=== PATIENT | female | born 1930 | race Caucasian/White ===

== ENCOUNTER 2018-11-06 20:22 | Inpatient (IN) ==
[2018-11-06] MEDS ORDERED: NS 1,000 ML IV ONE (21:12)
[2018-11-06 21:35] LABS: BASO# 0.04 X1000 (0.0-0.2); BASO% 0.7 % (0.0-0.8); EOS# 0.15 X1000 (0.0-0.7); EOS% 2.7 % (0.0-10.0); HEMATOCRIT 39.8 % (37.0-47.0); HEMOGLOBIN 13.3 g/dL (12.0-16.0); LYMPH# 1.78 X1000 (1.2-3.4); LYMPH% 32.1 % (20.5-51.1); MCH 32.5 PG (27-31); MCHC 33.4 g/dL (33-37); MCV 97.3 FL (81-99); MONO# 0.44 X1000 (0.11-0.59); MONO% 7.9 % (1.7-9.3); NEUT# 3.13 X1000 (1.4-6.5); NEUT% 56.6 % (42.2-75.2); PLT 218 X1000 (130-400); RBC 4.09 XMIL (4.2-5.4); RDW 12.4 % (11.5-14.5); WBC 5.54 X1000 (4.8-10.8)
[2018-11-06 21:48] LABS: AGAP 17; ALB/GLOB RATIO 1.3; ALKALINE PHOSPHATASE 59 U/L (32-104); BUN 17 mg/dL (8-22); CALCIUM 9.8 mg/dL (8.8-10.2); CHLORIDE 102 mmol/L (98-107); COSMO 290; CREATININE 0.8 mg/dL (0.5-0.9); ESTIMATED GFR > 60; GLUCOSE 103 mg/dL (70-104); GOT 21 U/L (10-30); GPT 12 U/L (10-36); POTASSIUM 3.3 mmol/L (3.5-5.1); SODIUM 145 mmol/L (136-145); TCO2 26 mmol/L (25-35); TOTAL BILIRUBIN 0.45 mg/dL (0.20-1.00); TOTAL PROTEIN 7.2 g/dL (6.3-8.3)
--- NOTE | 2018-11-06 22:01 | Diag Imaging Result Doc PS360 ---
CT HEAD W/O CONTRAST - 11/06/2018 INDICATION: AMS COMPARISON: 06/27/2018 FINDINGS: Stable mild diffuse atrophy. Stable moderate periventricular white matter chronic microvascular disease. No intracranial mass or hemorrhage. The skull is intact. The sinuses, mastoids, and middle ears are clear. IMPRESSION: No acute disease or change from prior. This exam was performed using automated exposure control, adjustment of mA or kV according to patient size, and/or use of iterative reconstruction technique Electronically signed by Brendon Lopez 11/06/2018 9:58 PM
--- NOTE | 2018-11-06 22:11 | Diag Imaging Result Doc PS360 ---
CHEST-PORTABLE - 11/06/2018 INDICATION: AMS COMPARISON: 05/04/2017 FINDINGS: Stable cardiomegaly. Pulmonary vascularity is slightly distended. Lung volumes are severely low. There are mild indeterminate infiltrates or atelectasis in the lung bases. No pneumothorax or pleural effusion. IMPRESSION: Nonspecific findings. Electronically signed by Brendon Lopez 11/06/2018 10:09 PM
[2018-11-06] MEDS ORDERED: ZOFRAN IV ONE (22:28)
[2018-11-06] MEDS ORDERED: ZOFRAN ONE (22:28)
--- NOTE | 2018-11-06 23:24 | PROVIDER DOCUMENTATION ---
This chart was entered by Vandana Martin Scribe, acting as scribe for Chantal Pemberton MD. HPI-General Adult - General Chief Complaint: Weakness Stated Complaint: weakness Time Seen by Provider: 11/06/18 21:00 Source: family Unable to obtain history due to:: other (hx from family, pt hx of dementia) Allergies/Adverse Reactions: Patient Allergies Allergy/AdvReac Type Severity Reaction Status Date / Time codeine Allergy Mild HIVES Verified 11/06/18 21:25 Home Medications: Home Medication List Medication Instructions Recorded Confirmed Last Taken Type Amlodipine [Norvasc] 2.5 mg PO DAILY 09/05/15 11/10/15 09/05/15 History Aspirin EC 81 mg PO DAILY 09/05/15 11/10/15 09/05/15 History Escitalopram Oxalate [Lexapro] 10 mg PO DAILY 09/05/15 11/10/15 09/05/15 History Esomeprazole [Nexium] 40 mg PO DAILY 09/05/15 11/10/15 09/05/15 History Gabapentin 200 mg PO HS 09/05/15 11/10/15 09/04/15 History Losartan Potassium 100 mg PO DAILY 09/05/15 11/10/15 09/05/15 History Meloxicam [Mobic] 15 mg PO DAILY 09/05/15 11/10/15 09/04/15 History Pravastatin Sodium 20 mg PO HS 09/05/15 11/10/15 09/04/15 History Hctz 50 mg PO DAILY 11/10/15 11/10/15 Unknown History Losartan [Cozaar] 100 mg PO DAILY 11/10/15 11/10/15 Unknown History Meclizine [Antivert] 25 mg PO DAILY 11/10/15 11/10/15 Unknown History Ondansetron [Zofran] 4 mg PO Q6H PRN PRN #10 tablet 11/10/15 Unknown Rx Aripiprazole [Abilify] 2 mg PO DAILY #20 tablet 05/04/17 Unknown Rx Nitrofurantoin Monohyd/M-Cryst 100 mg PO BID #14 capsule 05/04/17 Unknown Rx [Macrobid 100 mg Capsule] - History of Present Illness -Gen Adult Nature of Presenting Problems: pt is a87 yr old female presenting via EMS with 2 day hx of increased confusion and general weakness. pt does have hx of dementia but normally is a&o x 2, over last 2 days family reports increased confusion and weakness. no fever, cough. pt non verbal at this time, family reports pt normally talks. ACCORDING TO THE FAMILY, PATIENT WAS STARTED EMPIRICALLY ON CIPROFLOXACIN ON FOR POSSIBLE UTI BY PCP WITHOUT URINALYSIS PERFORMED. Location of Pain/Injury: reports: none Severity: reports: moderate Onset/Duration: reports: 2 days ago Timing: reports: still present Context/Activities at Onset: reports: rest Modifying Factors: improves with: nothing Associated Symptoms: reports: fatigue, weakness, other (increased confusion). denies: chest pain, fever/chills, genitourinary problems, sinus congestion/ drainage, shortness of breath Similar Symptoms Previously?: No Recently seen or treated by another doctor?: No Review of Systems - Adult - REVIEW OF SYSTEMS - ADULT ROS:: ROS per family Constitutional: reports: fatique. denies: chills, fever Eyes: denies: discharge, redness Ears, Nose, Mouth & Throat: denies: ear pain, sinus problem, throat pain Cardiovascular: denies: chest pain Respiratory: denies: cough, shortness of breath Gastrointestinal: denies: diarrhea, vomiting Genitourinary: reports: no symptoms reported Musculoskeletal: reports: muscle weakness Integumentary: reports: no symptoms reported Neurological: reports: other (increased confusion) Psychiatric: reports: no symptoms reported Endocrine: reports: no symptoms reported Hematologic/Lymphatic: reports: no symptoms reported Allergic/Immunologic: reports: no symptoms reported All Other Systems: Reviewed and Negative Past History - Adult - PAST MEDICAL HISTORY-ADULT Review of Records: reports: Old Records Reviewed, Nursing Assessment Review, Medications Reviewed, Social history reviewed & non-contributory. Major Childhood Illnesses: reports: denies history Cardiovascular: reports: HTN, hyperlipidemia Respiratory: reports: denies history Gastrointestinal: reports: GERD Obstetrical/Gynecological: reports: denies history Genitourinary: reports: kidney disease Musculoskeletal: reports: arthritis, chronic pain, orthopedic injury, osteoporosis Neurological: reports: denies history Endocrine/Immune: reports: anemia Other Conditions: reports: denies history - PRIOR SURGERIES/PROCEDURES Surgical/Procedure History: reports: reviewed, not pertinent, appendectomy, cholecystectomy, hysterectomy, BTL - IMMUNIZATION STATUS Childhood Immunizations: See Nurse Assessment Flu Vaccine: See Nurse Assessment - FAMILY HISTORY Family History: reviewed, not pertinent - SOCIAL HISTORY Living Situation: family Physical Exam-General - PHYSICAL EXAM-ADULT Initial Vital Signs Reviewed: Yes - CONSTITUTIONAL General Appearance: lethargic, other (confused; questionable aphasia (not responding) attempting to follow command) - EYES Eyes: PERRL/EOMI - HEAD, EARS, NOSE, MOUTH & THROAT HENMT: normocephalic/atraumatic, moist mucous membranes - NECK Neck: non-tender, full range of motion, supple, normal inspection - RESPIRATORY Respiratory: chest non-tender, lungs clear, normal breath sounds, no pleuratic chest pain, no respiratory distress, no accessory muscle use - CARDIOVASCULAR Cardiovascular: normal peripheral pulses, regular rate, rhythm, no edema - GASTROINTESTINAL (ABDOMEN) Abdominal Exam: normal bowel sounds, non tender, soft - LYMPHATIC Lymphatic: no adenopathy - MUSCULOSKELETAL Back Exam: normal inspection, no CVA tenderness, no vertebral tenderness Extremity: normal range of motion, non-tender, normal inspection, other (grib sensation wearker on right then left) - SKIN Integumentary: normal color, normal turgor, warm/dry - NEUROLOGIC Neurologic: aphasia. negative: focal weakness, motor weakness, sensory deficit - PSYCHIATRIC Psych/Mental Status: disoriented x 3 Progress - PLAN OF CARE/RESULTS Progress/Plan/Lab Results: Vital Signs - 8 hr 11/06/18 20:37 11/06/18 20:39 11/06/18 20:40 Temperature 98 F Pulse Rate 81 83 81 Respiratory Rate 16 22 13 Blood Pressure 223/115 O2 Sat by Pulse Oximetry 93 L 96 94 L 11/06/18 20:41 11/06/18 20:50 11/06/18 21:00 Temperature Pulse Rate 84 80 76 Respiratory Rate 20 14 17 Blood Pressure 223/115 O2 Sat by Pulse Oximetry 96 97 96 11/06/18 21:01 11/06/18 21:10 11/06/18 21:17 Temperature Pulse Rate 79 77 77 Respiratory Rate 11 L 18 14 Blood Pressure 217/116 181/87 O2 Sat by Pulse Oximetry 93 L 95 92 L 11/06/18 21:20 Temperature Pulse Rate 83 Respiratory Rate 16 Blood Pressure O2 Sat by Pulse Oximetry 94 L Orders Category Date Time Status CT HEAD W/O CONTRAST [CT] Stat Exams 11/06/18 21:10 Taken cxr [CHEST-PORTABLE] [RAD] Stat Exams 11/06/18 21:10 Taken CBC WITH ELECTRONIC DIFF [HEME] Stat Lab 11/06/18 21:01 Results COMPREHENSIVE METABOLIC PANEL [CHEM] Stat Lab 11/06/18 21:01 Received MAGNESIUM [CHEM] Stat Lab 11/06/18 21:01 Received URINALYSIS W/POSS RFLX CULT [URINALYSIS] Stat Lab 11/06/18 21:11 Uncollected 0.9% Sodium Chloride Inj [Ns] 1,000 ml Med 11/06/18 21:12 Active IV 999 mls/hr EKG [EKG] Stat Ther 11/06/18 20:36 Ordered EKG [EKG] Stat Ther 11/06/18 21:13 Ordered Result Diagrams: 11/06/18 21:01 11/06/18 21:01 - REASSESSMENT Reassessment #1 Time Reassessed: 23:16 Status: other (STILL PENDING UA; PATIENT STARTED TO TALK BEFORE ANY FLUID HYDRATION. STRENGTH STRONGER THAN BEFORE. QUESTIONABLE TIA/STROKE. WILL CONSULT HOSPITALIST.) Reassessment #2 Time Reassessed: 23:22 Status: other (SPOKE TO THE HOSPITALIST; APPRECIATE THEIR ASSISTANCE. PATIENT' S BLOOD PRSSURE DOWN FROM INITALLY; POSSIBLY INTRAVRAVASCUALR DOWN; CURRENTLY ONLY RECEIVED 300CC OF NS.) - EKG 1 Time of EKG reading by physician:: 20:42 EKG Read and Signed by:: Chantal Pemberton EKG Interpretation (*Must complete 3 of following elements*): Abnormal Rate: 83 Rhythm: nsr [place]: normal QRS: [facility] [place] Interval: prolonged ST Wave: normal - CT/MRI 1 CT Study: Head (IMPRESSION: NO ACUTE DISEASE OR CHANGE FROM PRIOR.) Departure - Departure Date of Disposition Decision: 11/06/18 Time of Disposition Decision: 23:23 DIAGNOSIS: Altered mental status Disposition: HOME 01 Certified Medical Emergency: Emergent Condition: Fair Referrals and Follow-Ups: None,PCP [Primary Care Provider] - - Critical Care Note This patient required my direct & personal management of CC.: No Attestation - Physician/ THERESA Attestation Patient care was provided by Advanced Practice Provider:: No The physician spent face to face time with patient:: Yes Advanced Practice Provider documentation review:: Supervising physician onsite and consulted in the evaluation and care of this patient. The physician did have a face to face encounter with the patient. This chart was documented by the indicated scribe, (Vandana Martin, Charlie) and accurately reflects the services I performed and decisions made by me, Chantal Pemberton MD, as attested by the provider's signature.
[2018-11-06 23:49] LABS: URINE SOURCE CATH
[2018-11-07 00:09] LABS: BILIRUBIN URINE NEGATIVE (NEGATIVE); BLOOD URINE MODERATE (NEGATIVE); COLOR YELLOW; GLUCOSE URINE NEGATIVE (NEGATIVE); KETONE URINE 60 mg/dL (NEGATIVE); LEUKOCYTES URINE NEGATIVE (NEGATIVE); NITRITE URINE NEGATIVE (NEGATIVE); PH URINE 5.5; PROTEIN URINE 100 mg/dL (NEGATIVE); SP GRAVITY URINE 1.023; TURBIDITY URINE HAZY (CLEAR); UR EPITHELIAL CELLS <10 /HPF (<10); URINE BACTERIA NEGATIVE /HPF; URINE RBC TNTC /HPF (<10); URINE WBC <10 /HPF (<10); UROBILINOGEN URINE NORMAL (NORMAL)
[2018-11-07] MEDS ORDERED: ASPIRIN PO ONE (00:13)
[2018-11-07] MEDS ORDERED: APRESOLINE IV PRN (00:46)
[2018-11-07] MEDS ORDERED: ZOFRAN IV PRN (00:46)
[2018-11-07] MEDS: LOVENOX SUBQ SCH (01:28)
[2018-11-07] MEDS: NS 1,000 ML IV SCH ×2 (01:28→16:56)
[2018-11-07] MEDS: POTASSIUM CHLORIDE 20 MEQ/SWI 20 MEQ/100 ML IVPB IV SCH ×2 (01:56→04:25)
--- NOTE | 2018-11-07 05:07 | HISTORY AND PHYSICAL ---
PRIMARY CARE PROVIDER: Dr. Nyla Mercedes. CHIEF COMPLAINT: Altered mental status. HISTORY OF PRESENT ILLNESS: Mrs. Nascimento is an 87-year-old female who sees Dr. Nyla Mercedes outpatient. For the last three days she has had weakness and confusion. She has a history of dementia, however she is normally more coherent than she has been in the last few days. She was nonverbal of arrival and she has had slurred speech, increased confusion, weakness. Her gait, she was leaning to the right per the family. She was having some left eye drooping and they mentioned what sounded like aphasia during the last couple of days when they were trying to talk to her on the phone. She saw her primary care provider, Dr. Nyla Mercedes, on the . It was a wellness visit and the urinalysis was not performed, however he started her empirically on ciprofloxacin for possible UTI. Since that time the patient has continued to have increasing symptoms and was brought in today. Noted per the ER provider, she was nonverbal on arrival. She was having noted right-sided weakness. He started the patient on fluids while labs were pending and her symptoms started to resolve. During my interview the patient was verbal. She was disoriented to time, oriented to place, disoriented to situation, oriented to person. She was able to follow most commands but was still having 4/5 right-sided strength as opposed to 5/5 left-sided strength. CT scan and laboratory data were all within normal limits. The CT showed stable mild diffuse atrophy and stable moderate periventricular white matter chronic microvascular disease. Showed no intracranial mass or hemorrhage. Did not mention area of infarct. The patient will be admitted inpatient to the medical floor for further evaluation and treatment. PAST MEDICAL HISTORY: 1. Hypertension. 2. Left eye glaucoma. 3. Dementia. PREVIOUS SURGICAL HISTORY: 1. Tubal ligation. 2. Hysterectomy. 3. Appendectomy. 4. Cholecystectomy. 5. Tonsillectomy and adenoidectomy. 6. Breast biopsy. FAMILY HISTORY: Mother had pancreatic cancer. Father's history is unknown. SOCIAL HISTORY: Lives with her . No alcohol, tobacco, or illicit drugs. ALLERGIES: Codeine. MEDICATIONS: 1. Norvasc 5 mg p.o. daily. 2. Abilify 5 mg p.o. daily. 3. Diclofenac sodium topically b.i.d. 4. Aricept 10 mg p.o. q a.m. 5. Cymbalta 60 mg p.o. q a.m. 6. Neurontin 200 mg p.o. q at bedtime. 7. Cozaar 50 mg p.o. daily. 8. Antivert 25 mg p.o. daily. 9. Omeprazole 40 mg p.o. daily. 10.Pravastatin sodium 20 mg p.o. q at bedtime. REVIEW OF SYSTEMS: A 14 point review of systems conducted with the patient. Pertinent positives listed above in the HPI. All other systems reviewed and found to be negative. PHYSICAL EXAM: VITAL SIGNS: Temperature 98.0 degrees Fahrenheit, pulse 84, respirations 19, blood pressure 201/95. Oxygen saturation 92% on room air. GENERAL: Pleasant, somewhat confused, 87-year-old female. Answers some questions appropriately. She is still having difficulty following some commands. She is oriented to person, place. Disoriented to situation and time. She is in no acute distress. HEENT: Head is normocephalic and atraumatic. Pupils are equal, round and reactive to light. Extraocular eye movements are intact. Sclerae anicteric. Conjunctivae is pink. Oral mucosa is mildly dry. NECK: Supple. No JVD. No thyromegaly. Trachea is midline. No cervical lymphadenopathy. CARDIAC: S1, S2 appreciated. No murmur, gallop, or rub. LUNGS: Clear to auscultation bilaterally. No rhonchi, wheeze or rales. Symmetric rise and fall of respirations. ABDOMEN: Soft, nontender, nondistended. Bowel sounds present in all four quadrants, normoactive. No pulsatile mass. No organomegaly. EXTREMITIES: No clubbing, cyanosis or edema. Two-plus pedal pulses bilaterally. GENITOURINARY: No bladder distention, otherwise deferred. NEUROLOGIC: There is 4/5 right upper and lower extremity strength. There is 5/ 5 left upper and lower extremity strength. No palmar drift. No slurring of speech at this time. The patient is no longer having aphasia. Per the family, she is more close to her baseline. DIAGNOSTIC DATA: 1. CT of the head showed chronic microvascular changes. 2. Chest x-ray severely low lung volumes. LABORATORY DATA: CBC, BMP are within normal limits, other than a potassium of 3.3. Urine is unremarkable other than hematuria, which could be related to the [place] catheter placement. IMPRESSION AND PLAN: 1. Cerebrovascular accident versus transient ischemic attack. Order MRI and MRA tomorrow morning, as well as echocardiogram. Start the patient on 81 mg aspirin daily. Lovenox 40 mg subcutaneous for DVT prophylaxis. We will give a 325 aspirin in the emergency room x1 dose. We will allow for permissive hypertension to keep the patient around 190 systolic. We will give hydralazine if needed. Tomorrow the patient may be able to resume her home medications for hypertension. 2. Hypertension. Please see #1. 3. Dementia. Continue home medications. 4. Hypokalemia. We will give 40 mEq of potassium and recheck labs in the morning. Further recommendations based upon the patient's clinical course. Dictated by ENE Perez for Josef Corrales MD cc: ENE Perez MD Marlin D. Gill, MD Pt's exam was not revealing for any gross neurological or cranial deficits, though she and family state her symptoms of R sided weakness and dysarthria had occurred for 3 days. In addition to ASA, high dose potent statin will be started. Patient's dementia based on this history is very likely vascular in origin. [facility]
[2018-11-07 07:30] LABS: BASO# 0.02 X1000 (0.0-0.2); BASO% 0.4 % (0.0-0.8); EOS# 0.08 X1000 (0.0-0.7); EOS% 1.5 % (0.0-10.0); HEMATOCRIT 37.8 % (37.0-47.0); HEMOGLOBIN 12.6 g/dL (12.0-16.0); LYMPH# 1.36 X1000 (1.2-3.4); LYMPH% 25.7 % (20.5-51.1); MCH 32.7 PG (27-31); MCHC 33.3 g/dL (33-37); MCV 98.2 FL (81-99); MONO# 0.42 X1000 (0.11-0.59); MONO% 7.9 % (1.7-9.3); NEUT# 3.41 X1000 (1.4-6.5); NEUT% 64.5 % (42.2-75.2); PLT 203 X1000 (130-400); RBC 3.85 XMIL (4.2-5.4); RDW 12.4 % (11.5-14.5); WBC 5.29 X1000 (4.8-10.8)
[2018-11-07 08:03] LABS: AGAP 12; BUN 13 mg/dL (8-22); CALCIUM 9.2 mg/dL (8.8-10.2); CHLORIDE 105 mmol/L (98-107); COSMO 287; CREATININE 0.7 mg/dL (0.5-0.9); ESTIMATED GFR > 60; GLUCOSE 108 mg/dL (70-104); POTASSIUM 4.3 mmol/L (3.5-5.1); SODIUM 144 mmol/L (136-145); TCO2 27 mmol/L (25-35)
--- NOTE | 2018-11-07 08:28 | EKG Report ---
Test Performed on : 11/06/2018 8:42:15 PM Test Reason : WEAKNESS Blood Pressure : / mmHG Vent. Rate : 083 BPM Atrial Rate : 083 BPM P-R Int : 176 ms QRS Dur : 086 ms QT Int : 444 ms P-R-T Axes : 055 -03 141 degrees QTc Int : 521 ms Normal sinus rhythm. Left ventricular hypertrophy with repolarization abnormality Prolonged QT Abnormal ECG When compared with ECG of 06-SEP-2015 07:52, ST no longer depressed in Anterior leads Unconfirmed Result
[2018-11-07] MEDS: ABILIFY PO SCH (12:29)
[2018-11-07] MEDS: ASPIRIN PO SCH (12:29)
[2018-11-07] MEDS: COZAAR PO SCH (12:29)
[2018-11-07] MEDS: ANTIVERT PO SCH (12:29)
[2018-11-07] MEDS: PRILOSEC PO SCH (12:29)
[2018-11-07] MEDS: NORVASC PO SCH (12:30)
[2018-11-07] MEDS: ARICEPT PO SCH (12:30)
[2018-11-07] MEDS: CYMBALTA PO SCH (12:30)
--- NOTE | 2018-11-07 16:18 | ECHO REPORT ---
ORDER DATE: 11/07/2018 INTERPRETING PHYSICIAN: Maged Ramírez MD INDICATION: An 87-year-old female with hypertension and hyperlipidemia. M-MODE MEASUREMENTS: Left ventricle end diastole: 4.2 cm. Left ventricle end systole: 2.1 cm. Posterior wall: 1.3 cm. Interventricular septum: 1.5 cm. Left atrium: 3.8 cm. Aortic root: 2.9 cm. SUMMARY OF 2-DIMENSIONAL IMAGIN. The left ventricular systolic function is hyperdynamic. The left ventricular ejection fraction is estimated at 80% or greater. There is evidence of apical hypertrophy, more so than hypertrophy at the level of the base. The wall thickness of the apex appears to be close to 1.4 cm and there is obliteration of the entire chamber during systole. This is consistent with apical hypertrophic cardiomyopathy. 2. The right ventricle is normal. 3. The left atrium appears to be mildly enlarged. 4. The aortic valve looks grossly normal. Color flow mapping indicates a mild degree of regurgitation. Maximum gradient across the aortic valve is 11 mm, mean gradient 4 mm. 5. Tricuspid valve shows mild degree of regurgitation. Inferior vena cava is at the upper limits of normal. 6. Pulmonary pressure is estimated at 56 to 61 mmHg. The pulmonic valve is normal. Color flow mapping unremarkable. 7. The mitral valve shows mild degree of regurgitation. 8. Pulse wave Doppler of mitral inflow shows "normal" E/A ratio. 9. Tissue Doppler of septal and lateral mitral annulus averages 4 cm. 10.There is impaired left ventricular relaxation. 11.There is no pericardial effusion, no mass, and no thrombus. 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 The wall thickness of the left ventricle is about 1.4 cm at the apex and appears to be much thicker than the basal segment, especially the posterior wall. There is impaired left ventricular relaxation. There is moderate pulmonary hypertension. Clinical correlation is recommended. cc: MD Leonardo Escamilla CRNP
--- NOTE | 2018-11-07 18:40 | PROGRESS NOTE ---
DATE: 11/07/2018 Overnight events. Ms. Nascimento was admitted for complaints of weakness, confusion, slurred speech, and gait disturbance with probably aphasia over duration of 2 to 3 days. In the emergency room CT scan of head was unremarkable. There was a suspicion of TIA and CVA so she was admitted for MRI imaging. Overnight she did not have any acute events. SUBJECTIVE: She is very sleepy. The patient's son is at bedside and patient only occasionally opens eyes to follow simple commands. Vitals detect temperature of 98.6 degrees, pulse 70 per minute, blood pressure 150/59, saturating 97% on room air. OBJECTIVE: General: Does not appear in acute distress. Oral cavity is moist. Air entry bilaterally equal. No wheeze, rhonchi, crackles. S1, S2 normal. No murmur, rub, or gallop. Abdomen: Soft, nontender. No lower extremity edema. Neurologic: She does not comply with commands to allow proper neurological examination. She resists eye opening bilaterally. There appears to be left-sided positional facial droop which resolved when she turns to the other side. She does have right upper extremity tremor however I could not complete thorough neurological examination as she was not complying with that. LAB: Investigation suggests no leukocytosis, normal blood counts, normal electrolytes, resolution of hypokalemia. IMAGING: Echocardiogram had suggested apical hypertrophic cardiomyopathy without any mural thrombus, preserved left ventricular ejection fraction with diastolic dysfunction. ASSESSMENT AND PLAN: 1. Suspected cerebrovascular accident versus transient ischemic attack as the possible etiology of acute encephalopathy. Follow up MRI, MRA imaging. Echocardiogram does not detect any intramural or left atrial thrombus. The EKG was normal sinus rhythm. Continue to monitor in telemetry unit. 2. Acute encephalopathy could be acute cerebrovascular accident versus progression of her baseline dementia. Will continue to monitor. 3. History of dementia. Continue home medications of donepezil. 4. History of hypertension. Continue home amlodipine and losartan. 5. For suspected cerebrovascular accident, continue high-dose atorvastatin, aspirin daily. Continue DVT prophylaxis with enoxaparin. 6. Hypokalemia resolved. 7. Disposition. Patient remains inside the hospital for MR imaging. Physical therapy has been ordered. Speech evaluation has also been ordered. I discussed extensively her case with her son at bedside that if there is no cerebrovascular accident on MR imaging it is a possibility that her current acute encephalopathy, poor p.o. intake and change in the behavior could be part of progression of her dementia. Answered all of his questions. cc: Mikey Caballero MD
[2018-11-07] MEDS: LIPITOR PO SCH (20:27)
[2018-11-07] MEDS ORDERED: NEURONTIN PO SCH (21:00)
[2018-11-08] MEDS: LOVENOX SUBQ SCH (01:50)
[2018-11-08] MEDS: NS 1,000 ML IV SCH (03:58)
[2018-11-08] MEDS: ANTIVERT PO SCH (09:44)
[2018-11-08] MEDS: PRILOSEC PO SCH (09:44)
[2018-11-08] MEDS: NORVASC PO SCH (09:44)
[2018-11-08] MEDS: CYMBALTA PO SCH (09:44)
[2018-11-08] MEDS: ARICEPT PO SCH (09:45)
[2018-11-08] MEDS: ASPIRIN PO SCH (09:45)
[2018-11-08] MEDS: ABILIFY PO SCH (09:45)
[2018-11-08] MEDS: COZAAR PO SCH (09:48)
[2018-11-08] MEDS: COREG PO SCH ×2 (09:56→20:40)
--- NOTE | 2018-11-08 11:23 | Diag Imaging Result Doc PS360 ---
MRI BRAIN W/WO CONTRAST - 11/07/2018 INDICATION: stroke COMPARISON: Head CT 11/06/2018 FINDINGS: There is no area of restricted diffusion. There is moderate diffuse atrophy. There is moderate periventricular white matter chronic microvascular disease. No intracranial mass or hemorrhage. There is no abnormal contrast enhancement. IMPRESSION: Atrophy and cerebral white matter chronic microvascular disease. No acute disease. Electronically signed by Brendon Lopez 11/08/2018 11:21 AM
--- NOTE | 2018-11-08 11:25 | Diag Imaging Result Doc PS360 ---
MRA BRAIN W/O CONTRAST - 11/07/2018 INDICATION: stroke TECHNIQUE: Noncontrast [id number] technique was used COMPARISON: None FINDINGS: On the right side, the internal carotid artery and its branches are normal. On the left side, there is severe narrowing of the cavernous and supraclinoid internal carotid artery, narrowed by about 75%. The A1 branch on the left is very narrowed probably due to low flow. There is an anterior communicating artery, the 18th branch may be receiving most of its blood from the right side. The left middle cerebral artery is grossly patent. The vertebral and basilar arteries are patent. The posterior cerebral arteries are patent. 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 The majority of the left anterior cerebral artery may be filled by collateral flow from the right anterior cerebral artery. Electronically signed by Brendon Lopez 11/08/2018 11:23 AM
--- NOTE | 2018-11-08 16:21 | PROGRESS NOTE ---
DATE: 11/08/2018 SUBJECTIVE: This morning Ms. Nascimento is fairly stable. She did tell me that she was doing fine. There was a female family friend at the bedside (this is the girlfriend to the son). Ms. Nascimento herself was not able to give me any interim history, but according to the female family friend, she seems to be fairly the same as yesterday. OBJECTIVE: Vital signs: Blood pressure is down to 158/77, pulse is 80, respirations 18, temperature 98.1 degrees. Patient is saturating 95% on room air. Of note, the patient got admitted with a blood pressure of 223/115. General exam: Ms. Nascimento is an 87- year-old female. She was in bed. She did not seem to be in any cardiopulmonary distress. HEENT: Mucosa is pink, slightly dry. Anicteric. Acyanotic. Neck: Supple. No JVD. No carotid bruit. Respiratory System: There is good air entry bilateral. No crepitations. No rhonchi. Cardiovascular System: Regular rate and rhythm. No murmurs, no rubs, no gallops. Abdomen: Soft, nontender, bowel sounds present. Extremities: No pedal edema. CORPORATE WEBMASTER: Patient was lethargic. Eyes closed, but she would open her eyes to command, and she will respond yes or no to certain questioning. She will move her head upon command, and moves all extremities on painful stimulation. LABORATORY DATA: No lab work for today. IMAGING STUDIES: The patient's MRI shows atrophy and cerebral white matter chronic microvascular disease. No acute disease. The MRA of the brain showed severe stenosis of the cavernous and supraclinoid left internal carotid. The majority of the left anterior cerebral artery may be filled by collateral from the right. Echocardiogram shows evidence of apical hypertrophy with impaired left ventricular relaxation. ASSESSMENT: 1. Altered mental status on presentation. It should be known that Ms. Nascimento is known to have dementia. She has been on Lexapro for a very long time. Family members thought that the Lexapro is not working anymore, so they sent her to her primary care, and the patient was started on Cymbalta and Aricept. This was last week, Tuesday. Since then , Ms. Nascimento has been remarkably confused, has been almost immobile, just staying in her bed and unable to perform any activities. I think this current neurological change is a result of the medications that she is on. It should also be known that Ms. Nascimento was already on gabapentin and Abilify, so I think the combination of these 2 with the Cymbalta and the Aricept is what has caused her current neurological mental status. Her MRI and MRA did not really fiber picker any acute stroke. There are some findings which are significant, but I do not think they are causing her current abnormality. 2. Intracranial left internal carotid artery stenosis. We will have to continue addressing modifiable risk factors, including hypertension. I do not think intervention is indicated for intracranial vessels abnormality. We will, however, wait for Neurology to see the patient or the patient will follow up with them as outpatient. 3. Apical hypertrophic cardiomyopathy. I think this is also probably all related to hypertensive heart disease. We will, however, get Cardiology to evaluate the patient. 4. Diastolic dysfunction. The patient is not in congestive heart failure at this point. 5. Clinical volume depletion. Will continue gentle intravenous fluids. 6. Hypertension. This was remarkably elevated on presentation. The patient has been started on her blood pressure medications and it is getting better. I have added carvedilol to help with the physiology at the level of the hypertrophic cardiomyopathy. PLAN: So, in general, Ms. Nascimento has global encephalopathy with no obvious motor or neurological focal deficit, and I presume this is due to medications on the background of some cognitive decline/dementia. I will withhold all her psychotropic medications overnight including gabapentin, aripiprazole, Cymbalta, and donepezil until tomorrow. If by tomorrow her mentation starts to get any better, we will start to introduce the ones that she has been on for years and go from there. I have discussed the findings with a family member at the bedside. We will be pending Cardiology evaluation. cc: Tyrell Nova MD MTDLeonardo
[2018-11-08] MEDS: LIPITOR PO SCH (20:40)
[2018-11-09] MEDS: LOVENOX SUBQ SCH (01:05)
[2018-11-09] MEDS: NS 1,000 ML IV SCH ×3 (06:02→23:18)
[2018-11-09] MEDS: PRILOSEC PO SCH (08:31)
[2018-11-09] MEDS: COZAAR PO SCH (08:31)
[2018-11-09] MEDS: ANTIVERT PO SCH (08:31)
[2018-11-09] MEDS: COREG PO SCH ×2 (08:31→20:07)
[2018-11-09] MEDS: ASPIRIN PO SCH (08:31)
[2018-11-09] MEDS: NORVASC PO SCH (08:31)
--- NOTE | 2018-11-09 10:24 | PROGRESS NOTE ---
DATE: 11/09/2018 SUBJECTIVE: This morning, Ms. Kaity Nascimento continues to be remarkably obtunded, but I think it is pretty much just like yesterday. She would open her eyes and say yes and no to extreme painful stimulation. She will also move all her extremities to painful stimulation. OBJECTIVE: Vital signs: Blood pressure is 187/91, pulse is 89, respiration is 18, temperature 99.1. The patient was saturating 96% on room air. General: On general exam, Ms. Nascimento is an 87- year-old, female. She is in bed. She was not in any cardiopulmonary distress. HEENT: Mucosa was pink and moist. Anicteric. Acyanotic. Neck: Supple. Chest: Air entry was bilaterally reduced. I did not hear any crackles or rhonchi. Cardiovascular: Regular rate and rhythm. No murmurs, no rubs, no gallops. Abdomen: Soft, nontender. Bowel sounds were present. Extremities: No pedal edema. FINANCIAL OPERATIONS CLERK: The patient is obtunded. Eyes closed. Will open them to painful stimulation. She will say yes and no, but will not sustain any conversation. She will move all extremities to stimulation. I did not get her to move very well the left upper extremity. LABORATORY DATA: None for today. CURRENT MEDICATIONS: 1. Amlodipine 5 mg daily. 2. Aspirin 81 mg daily. 3. Lipitor 40 mg daily. 4. Coreg 6.25 daily b.i.d. 5. Lovenox 40 subcutaneous. 6. Labetalol p.r.n. 7. Cozaar 50 daily. 8. Normal saline at 75 mL per hour. ASSESSMENT: 1. Altered mental status. No apparent focalization. We presume this is medication induced. The patient was on Cymbalta, Aricept, gabapentin, and Seroquel. We will continue with the IV fluids and continue neurological evaluation. The patient had a CT scan and MRI, which does not show any acute stroke. 2. Intracranial left internal carotid artery stenosis noted. We will continue to address modifiable risk factors including adequate control on the high blood pressure. 3. Apical hypertrophic cardiomyopathy. The patient is currently on a beta elia. Cardiology has been consulted. 4. Diastolic dysfunction, likely due to hypertensive heart disease. 5. Clinical volume depletion, improving. 6. Uncontrolled hypertension. We will continue with current medications. So, in general, Ms. Nascimento has really not shown any improvement over the last 24 hours. I do not think there has been any worsening either. It all appears that this is related to the medications that she was on. We are going to continue with the current hydration, neuro observation and re- evaluate her in the morning. If her mentation does not show any improvement in the next 24 to 48 hours, I think it to be reasonable to rescan her. cc: Tyrell Nova MD
--- NOTE | 2018-11-09 12:47 | CONSULTATION ---
DATE OF CONSULTATION: 11/09/2018 IMPRESSION: 1. Cardiomyopathy with left ventricular hypertrophy and preserved left ventricular systolic function. Echocardiography report suggest apical hypertrophic cardiomyopathy. 2. Patient currently admitted with altered mental status in the setting of longstanding dementia and recent medication changes. Magnetic resonance imaging does not seem to suggest acute cerebrovascular accident. 3. Longstanding hypertension. 4. Depression. 5. Glaucoma. RECOMMENDATIONS: 1. Agree with use of Coreg for antihypertensive regimen. Additional therapy might be considered if needed with addition of angiotensin receptor blocking agent. 2. Neurology consultation. 3. Conservative cardiovascular care overall. This was discussed with the patient's son. I suggested that he consider advanced directives given her age and significant debility. 4. Will defer continual management of hypertension to primary care team. Use of Coreg with possible addition of angiotensin receptor blocking agent suggested. We will see further on an as-needed basis. HISTORY: This is an 87-year-old, white female with past history of dementia and longstanding hypertension was admitted recently with altered mental status. History was gathered from her son. He indicates that she has had some recent problems with worsened dementia. Her not too long ago. Medication changes were made in that Lexapro was discontinued in favor of Cymbalta. Aricept was also added. The patient became progressively confused and had some slurring of speech. This progressed to the point that she became poorly responsive and she was brought to the hospital. She is not able give any significant history. She remains unresponsive to verbal stimulus. She does withdrawal to noxious stimulus. She seems to move all 4 extremities. Echocardiography reported left ventricular hypertrophy in a pattern suggesting possible apical hypertrophic cardiomyopathy. For this reason, Cardiology was consulted. PAST MEDICAL HISTORY: 1. Dementia. 2. Longstanding hypertension. 3. Left eye glaucoma. PAST SURGICAL HISTORY: Past surgical history includes tubal ligation, hysterectomy, appendectomy, cholecystectomy, tonsillectomy, adenectomy and breast biopsy. ALLERGIES: She is allergic or intolerant to codeine. SOCIAL HISTORY: She does not smoke or use alcohol. FAMILY HISTORY: Positive for cancer. There is no premature coronary disease. There is no early sudden in the patient's family history. REVIEW OF SYSTEMS: Not obtainable given patient's altered mental status. PHYSICAL EXAMINATION: General: This is an elderly, overweight white female in no apparent distress, who does not respond to verbal stimulus. Vital signs: Blood pressure 187/91, heart rate 89, oxygen saturation 94 to 96 percent on room air. HEENT: Extraocular movements appear intact. Mucous membranes moist. Neck: Supple without jugular venous distention. Carotid bruits cannot be appreciated. Chest: Clear to auscultation bilaterally. Cardiac Exam: Reveals a regular rate and rhythm. No murmur or gallop could be appreciated. Abdomen: Soft. Bowel sounds audible. Extremities: Without edema. PERTINENT DATA: Twelve lead EKG demonstrates sinus rhythm and left ventricular hypertrophy with repolarization abnormality. LABORATORY DATA: Laboratory data includes a white blood cell count of 5.29, hematocrit 37.8, hemoglobin 12.6, platelet count 203. Sodium 144, potassium 4.3, chloride 105, carbon dioxide 27. BUN 13, creatinine 0.7, glucose 108. cc: Andrew Hyman MD
[2018-11-09] MEDS: LIPITOR PO SCH (20:07)
[2018-11-10] MEDS: LABETALOL IV PRN ×2 (00:11→08:07)
[2018-11-10] MEDS: LOVENOX SUBQ SCH (00:11)
[2018-11-10] MEDS: NORVASC PO SCH ×2 (11:00→20:20)
[2018-11-10] MEDS: COREG PO SCH ×2 (11:00→20:20)
[2018-11-10] MEDS: ASPIRIN PO SCH (11:00)
[2018-11-10] MEDS: COZAAR PO SCH (11:00)
[2018-11-10] MEDS: PRILOSEC PO SCH (11:01)
[2018-11-10 12:58] LABS: ALLEN TEST YES; BE 0.9 mmoll (-3.0-3.0); BLOOD TYPE ARTERIAL; HCO3-(ACT) 25.5 mmoll (20.0-26.0); METHB 0.6 % (0.0-1.5); O2(CT) 17.9 mL/dL (15.0-23.0); O2HB 92.5 % (95.0-99.0); PCO2(98.6) 33 mmHg (35-45); PO2(98.6) 65 mmHg (60-100); SAMPLE BLOOD; SAO2 93.5 % (95.0-100.0); THB 13.8 g/dL (11.5-17.4); pH(98.6) 7.47 (7.35-7.45)
[2018-11-10 12:59] LABS: MODALITY ROOM AIR
[2018-11-10 13:23] LABS: BASO# 0.02 X1000 (0.0-0.2); BASO% 0.2 % (0.0-0.8); EOS# 0.04 X1000 (0.0-0.7); EOS% 0.3 % (0.0-10.0); HEMOGLOBIN 13.3 g/dL (12.0-16.0); IMM GRAN# 0.02 X1000 (0.0-0.04); IMM GRAN% 0.2 % (0.0-0.5); LYMPH# 1.38 X1000 (1.2-3.4); LYMPH% 10.6 % (20.5-51.1); MCH 32.8 PG (27-31); MCHC 34.1 g/dL (33-37); MCV 96.1 FL (81-99); MONO# 0.74 X1000 (0.11-0.59); MONO% 5.7 % (1.7-9.3); MPV 9.3 FL (7.4-10.4); NEUT# 10.82 X1000 (1.4-6.5); PLT 226 X1000 (130-400); RBC 4.06 XMIL (4.2-5.4); RDW 12.4 % (11.5-14.5); WBC 13.02 X1000 (4.8-10.8)
[2018-11-10] MEDS ORDERED: CARDIZEM IV ONE (13:25)
--- NOTE | 2018-11-10 13:38 | EKG Report ---
Test Performed on : 11/10/2018 1:24:47 PM Test Reason : afib Blood Pressure : / mmHG Vent. Rate : 127 BPM Atrial Rate : 127 BPM P-R Int : 000 ms QRS Dur : 088 ms QT Int : 354 ms P-R-T Axes : 000 028 185 degrees QTc Int : 514 ms Atrial fibrillation. with rapid ventricular response. Minimal voltage criteria for LVH, may be normal variant Marked ST abnormality, possible inferior subendocardial injury Abnormal ECG When compared with ECG of 06-NOV-2018 20:42, (Unconfirmed) Atrial fibrillation. has replaced Sinus rhythm. Vent. rate has increased BY [address] now depressed in Anterior leads Nonspecific T wave abnormality now evident in Inferior leads Confirmed by Roger FIORE, Schuyler Mahan ([id number]) on 11/11/2018 9:23:23 AM
--- NOTE | 2018-11-10 13:43 | Diag Imaging Result Doc PS360 ---
EXAM: CHEST/ABD TUBE PLACEMENT 11/10/2018 HISTORY: ng tube placement TECHNIQUE: AP abdomen for NG tube placement COMMENT: The NG tube tip is in the distal stomach. There is a large amount of stool present in the ascending and rectosigmoid colon. IMPRESSION: NG tube in the stomach. Constipation. Electronically signed by Dario Hook 11/10/2018 1:40 PM
[2018-11-10 13:45] LABS: AGAP 13; ALB/GLOB RATIO 1.1; ALBUMIN 3.5 g/dL (3.5-5.0); ALKALINE PHOSPHATASE 59 U/L (32-104); BUN 15 mg/dL (8-22); CALCIUM 9.6 mg/dL (8.8-10.2); CHLORIDE 101 mmol/L (98-107); COSMO 275; CREATININE 0.5 mg/dL (0.5-0.9); ESTIMATED GFR > 60; GLUCOSE 141 mg/dL (70-104); GOT 20 U/L (10-30); GPT 10 U/L (10-36); POTASSIUM 3.7 mmol/L (3.5-5.1); SODIUM 136 mmol/L (136-145); TCO2 22 mmol/L (25-35); TOTAL BILIRUBIN 0.68 mg/dL (0.20-1.00); TOTAL PROTEIN 6.7 g/dL (6.3-8.3)
[2018-11-10] MEDS: CLINIMIX E 4.25%-5% SOLUTION 1,000 ML IV SCH (14:14)
[2018-11-10] MEDS: LIPOSYN 20% 250 ML IV SCH (14:14)
--- NOTE | 2018-11-10 14:51 | Diag Imaging Result Doc PS360 ---
EXAM: CT HEAD W/O CONTRAST 11/10/2018 HISTORY: encephalopathy TECHNIQUE: This exam was performed using automated exposure control, adjustment of mA or kV according to patient size, and/or use of iterative reconstruction technique. COMMENT: The current examination is compared with the previous study of 11/06/2018. There is moderate generalized cerebral atrophy. There is extensive abnormal lucency in the periventricular white matter particularly in the left frontal lobe. No evidence of bleed, mass effect, or abnormal extra-axial fluid collection is present. There is an apparent lacune in the inferior posterior right basal ganglia. Compared to the previous study there has been no apparent change. IMPRESSION: Atrophy and chronic microvascular ischemic change. Electronically signed by Dario Hook 11/10/2018 2:49 PM
--- NOTE | 2018-11-10 15:05 | PROGRESS NOTE ---
DATE: 11/10/2018 SUBJECTIVE: This morning, Ms. Nascimento continued to be minimally responsive. She will, however, open her eyes to extreme painful stimulation, but I perceive she was interacting less with me today than yesterday. The son was at the bedside at the time of the encounter. OBJECTIVE: Vital signs: Blood pressure 186/62, pulse is 75, respiration is 18, temperature is 99.1 degrees. General exam: Ms. Nascimento is an 87-year-old female. She was in bed. She did not seem to be in any cardiopulmonary distress. HEENT: Mucosa was pink and moist. Anicteric. Acyanotic. Neck: Supple. Chest: Good air entry bilateral. There was no crepitation, no rhonchi. Cardiovascular: Regular rate and rhythm. No murmurs, no rubs, no gallops. Abdomen: Soft. Bowel sounds are present. Extremities: No pedal edema. SILVERWARE SUPERVISOR: Patient has the eyes closed. She will, however, open them upon painful stimulation and then she would just go back to sleep. She will move all her extremities upon painful stimulation. LABORATORY DATA: WBC is 13.02, hemoglobin is 13.3, platelet count is 226. Chemistry is also reviewed and completely normal. The patient's glucose is 141. Prealbumin is 11.0. ASSESSMENT: 1. Altered mental status (stuporous state with no focalization). We presume this is still medication-induced. Both CT scan and MRIs were unremarkable. 2. Intracranial left internal carotid artery stenosis. We will continue addressing modifiable risk factors ,including adequate blood pressure control. 3. Apical hypertrophic cardiomyopathy. The patient is started on beta elia. Cardiology is on board. 4. Clinical volume depletion is improved. 5. Uncontrolled hypertension. We went up on her beta elia, and patient has also been started on losartan. PLAN: So, in general, I have really not seen any improvement in the neurological status of Ms. Nascimento today. I still think that she has no focalization and then this is likely a toxin metabolic or infectious encephalopathy. I do not find any source of infection, and the only history we have is that she was just given Cymbalta and Aricept on top of her gabapentin and Abilify. Since then, her mentation has remarkably reduced. I still think this is medication- induced on the background of very poor neurological reserve, and that her mentation is going to take some time to recover if it is going to recover at all. We are going to do a follow-up CT scan on her today. We will also do blood cultures and urine culture. I will do a chest x-ray just to rule out any possible superimposed infection. I have discussed this plan with the son. About an hour after I saw Ms. Nascimento today, I was called by the nurse that she had gone into atrial fibrillation RVR with a rate of 150. I looked at the EKG and it is in atrial fibrillation. We gave her 10 units of diltiazem; it brought it down to about 111, but because she has underlying hypertrophic cardiomyopathy and severe uncontrolled hypertension, she has potential to go back into RVR. So, I am going to transfer her from the medical floor to cardiac unit for close cardiac monitoring. I will re-evaluate her later on this afternoon with all the investigations available. CRITICAL TIME SPENT: 45 minutes. When I came back for the second time I saw the other son and the daughter in law at the bedside, and I did notify them about the new finding which is the atrial fibrillation RVR. cc: Tyrell Nova MD
[2018-11-10 16:40] LABS: URINE SOURCE CATH
[2018-11-10 16:49] LABS: BILIRUBIN URINE NEGATIVE (NEGATIVE); BLOOD URINE LARGE (NEGATIVE); COLOR STRAW; GLUCOSE URINE 70 mg/dL (NEGATIVE); KETONE URINE 10 mg/dL (NEGATIVE); LEUKOCYTES URINE NEGATIVE (NEGATIVE); NITRITE URINE NEGATIVE (NEGATIVE); PH URINE 7.5; PROTEIN URINE TRACE mg/dL (NEGATIVE); SP GRAVITY URINE 1.002; TURBIDITY URINE CLEAR (CLEAR); UROBILINOGEN URINE NORMAL (NORMAL)
[2018-11-10 16:50] LABS: UR EPITHELIAL CELLS <10 /HPF (<10); URINE BACTERIA NEGATIVE /HPF; URINE RBC TNTC /HPF (<10); URINE WBC <10 /HPF (<10)
[2018-11-10] MEDS: CARDIZEM 100 MG in NS 80 ML IV SCH ×2 (17:26→23:29)
--- NOTE | 2018-11-10 19:06 | Diag Imaging Result Doc PS360 ---
EXAM: CHEST-1 VIEW 11/10/2018 HISTORY: sepsis/r/o pneumonia TECHNIQUE: AP portable at 1844 COMMENT: There is an NG tube with its tip below the diaphragm. The inspiration is better than on the previous study of 11/06/2018. The atelectatic changes seen previously in the lung bases has improved. IMPRESSION: Improved atelectasis. Otherwise no significant change. Electronically signed by Dario Hook 11/10/2018 7:04 PM
[2018-11-10] MEDS: LIPITOR PO SCH (20:20)
[2018-11-11] MEDS: LOVENOX SUBQ SCH (00:03)
[2018-11-11] MEDS: NS 1,000 ML IV SCH (00:48)
[2018-11-11] MEDS: CLINIMIX E 4.25%-5% SOLUTION 1,000 ML IV SCH ×2 (05:23→20:32)
[2018-11-11 05:35] LABS: BASO# 0.02 X1000 (0.0-0.2); BASO% 0.2 % (0.0-0.8); EOS# 0.15 X1000 (0.0-0.7); EOS% 1.4 % (0.0-10.0); HEMATOCRIT 36.5 % (37.0-47.0); HEMOGLOBIN 12.4 g/dL (12.0-16.0); IMM GRAN# 0.02 X1000 (0.0-0.04); IMM GRAN% 0.2 % (0.0-0.5); LYMPH# 1.43 X1000 (1.2-3.4); MCH 32.9 PG (27-31); MCV 96.8 FL (81-99); MONO# 0.75 X1000 (0.11-0.59); MONO% 6.8 % (1.7-9.3); MPV 9.6 FL (7.4-10.4); NEUT# 8.65 X1000 (1.4-6.5); NEUT% 78.4 % (42.2-75.2); PLT 263 X1000 (130-400); RBC 3.77 XMIL (4.2-5.4); RDW 12.4 % (11.5-14.5); WBC 11.02 X1000 (4.8-10.8)
[2018-11-11 06:05] LABS: AGAP 10; ALB/GLOB RATIO 0.9; ALBUMIN 2.9 g/dL (3.5-5.0); ALKALINE PHOSPHATASE 51 U/L (32-104); BUN 32 mg/dL (8-22); CALCIUM 9.7 mg/dL (8.8-10.2); CHLORIDE 100 mmol/L (98-107); COSMO 279; CREATININE 0.8 mg/dL (0.5-0.9); ESTIMATED GFR > 60; GLUCOSE 201 mg/dL (70-104); GOT 20 U/L (10-30); GPT 9 U/L (10-36); POTASSIUM 3.6 mmol/L (3.5-5.1); SODIUM 133 mmol/L (136-145); TCO2 23 mmol/L (25-35); TOTAL BILIRUBIN 0.61 mg/dL (0.20-1.00); TOTAL PROTEIN 6.1 g/dL (6.3-8.3)
[2018-11-11] MEDS: ASPIRIN PO SCH (08:17)
[2018-11-11] MEDS: COREG PO SCH (08:17)
[2018-11-11] MEDS: COZAAR PO SCH (08:17)
[2018-11-11] MEDS: PRILOSEC PO SCH (08:17)
[2018-11-11] MEDS: NORVASC PO SCH ×2 (08:17→20:33)
[2018-11-11] MEDS: CARDIZEM 100 MG in NS 80 ML IV SCH (11:09)
--- NOTE | 2018-11-11 13:05 | PROGRESS NOTE ---
DATE: 11/11/2018 SUBJECTIVE: This morning, I saw Ms. Nascimento and the son was at the bedside. According to the son, Ms. Nascimento seems to be doing a lot better. She is opening her eyes voluntarily and some times upon calling out her name. OBJECTIVE: Vital signs: Blood pressure is 101/55, pulse 77, respirations 16, temperature is 98.4 degrees. General: Ms. Nascimento is an 87-year-old female. She is in bed. She is not in any cardiopulmonary distress. HEENT: Mucosa is pink and moist. Anicteric. Acyanotic. Neck: Supple. Chest: Good air entry bilaterally. A few crackles posteriorly, but no rhonchi. Cardiovascular: Irregularly irregular, but rate controlled. No murmurs. Abdomen: Soft. Bowel sounds present. Extremities: No pedal edema. HOP SEPARATOR: The patient is still lethargic, but she is able to open her eyes upon command. She tries to mumble some non comprehensive words, and she is moving more actively all extremities today. LABORATORY DATA: WBC is down to 11.03, hemoglobin is 12.4, platelet count of 263. Chemistry is also reviewed: Sodium is 133, potassium is 3.6, chloride is 100, bicarbonate is 23. So far, urine culture is negative. IMAGING STUDIES: A chest x-ray yesterday actually showed improved atelectasis and no evidence of pneumonia. ASSESSMENT: 1. Altered mental status (stuporous state with no focalizing sign presumably due to medication- induced encephalopathy on a background of severe dementia). The patient's mentation looks slightly better this morning. We are going to continue supportive measures. 2. Intracranial left internal artery carotid stenosis noted. 3. Apical hypertrophic cardiomyopathy. Patient is on beta elia. 4. Hypertension, controlled. 5. Clinical volume depletion, improving. 6. Atrial fibrillation with rapid ventricular response. The patient is currently on diltiazem. She is still in atrial fibrillation, but rate is controlled. We are going to start her on metoprolol and discontinue the Coreg, and also if the pulse continues to be stabilized on the metoprolol, we will discontinue the Cardizem drip. PLAN: So, in general, Ms. Nascimento seems to be slightly improving today. She seems to be interacting a little bit more by opening her eyes to her name and also by spontaneously opening her eyes herself. We are going to continue supporting her in terms of her nutrition, continue with the beta elia, re-evaluate her later on today and make changes accordingly. cc: Tyrell Nova MD
[2018-11-11] MEDS: LOPRESSOR NG SCH ×2 (14:59→20:33)
[2018-11-11] MEDS: LIPOSYN 20% 250 ML IV SCH (14:59)
[2018-11-11] MEDS: LIPITOR PO SCH (20:33)
[2018-11-12] MEDS: LOVENOX SUBQ SCH ×2 (00:47→20:42)
[2018-11-12] MEDS: LOPRESSOR NG SCH ×4 (04:44→23:12)
[2018-11-12] MEDS: COZAAR PO SCH (08:24)
[2018-11-12] MEDS: NORVASC PO SCH ×2 (08:24→20:43)
[2018-11-12] MEDS: CARDIZEM 100 MG in NS 80 ML IV SCH (08:24)
[2018-11-12] MEDS: PRILOSEC PO SCH (08:24)
[2018-11-12] MEDS: ASPIRIN PO SCH (08:24)
[2018-11-12] MEDS: CLINIMIX E 4.25%-5% SOLUTION 1,000 ML IV SCH (11:06)
[2018-11-12] MEDS: LIPOSYN 20% 250 ML IV SCH (11:48)
--- NOTE | 2018-11-12 12:10 | PROGRESS NOTE ---
DATE: 11/12/2018 SUBJECTIVE: This morning Ms. Nascimento seems to be a lot more awake than yesterday. At multiple times she was able to smile and she was able to mumble a few words like yes or no. According to the 2 sons who were at the bedside with her, her mentation is gradually getting better. OBJECTIVE: Vital signs: Blood pressure is 140/42, pulse is 92, respirations 17 , temperature is 98.6 degrees. The patient is saturating 96% on room air. General: Ms. Nascimento is an 87-year-old female. She is in bed, no distress. HEENT: Mucosa is pink and moist. Anicteric and acyanotic. Neck: Supple. No JVD. Respiratory: Good air entry bilaterally. Few crackles in the posterior lung carlton. Cardiovascular: Irregularly irregular but better control. No murmurs. No rubs. No gallops. GI: Abdomen is soft, nontender. Bowel sounds present. There is no hepatosplenomegaly. Extremities: No pedal edema. VICTORIAN LITERATURE PROFESSOR: Patient is awake. Moves and tracks with her eyes. She is able to say yes and no. However, the speech is slightly garbled. She will move all of her extremities. At some point she was able to even move her toes upon command. LABORATORY DATA: None for today. ASSESSMENT: 1. Altered mental status. No focalizing sign. Presume this is medication induced encephalopathy on the background of severe dementia. Patient's mentation continues to be improving. We are going to continue supportive measures. 2. Intracranial left internal carotid artery stenosis, noted. We will continue with risk factor management. 3.Hypertrophic cardiomyopathy. Patient is on beta elia. 4. Severe hypertension on presentation. This is improving. 5. Clinical volume depletion, improved. 6. Atrial fibrillation with rapid ventricular response. The patient is now rate controlled. Is currently on oral metoprolol. We have discontinued the Cardizem drip. Patient is also on Lovenox as an anticoagulant. 7. Protein calorie malnutrition. Patient is on Clinimix with lipid infusion. We are pending a second swallow evaluation on her tomorrow. PLAN: So I think in general Ms. Nascimento is getting better. She seems to be engaging more. I still think that her mentation was drug-induced. Neuro imaging has all been negative. We are going to continue with supportive care, control her blood pressure, get her a swallow evaluation tomorrow, and go from there. cc: Tyrell Nova MD MTDD
[2018-11-12] MEDS: TYLENOL NG PRN (17:24)
[2018-11-12] MEDS: LIPITOR PO SCH (20:42)
[2018-11-13] MEDS: CLINIMIX E 4.25%-5% SOLUTION 1,000 ML IV SCH ×2 (01:49→17:06)
[2018-11-13] MEDS: LOPRESSOR NG SCH ×3 (04:28→16:34)
[2018-11-13 05:39] LABS: BASO# 0.03 X1000 (0.0-0.2); BASO% 0.3 % (0.0-0.8); EOS# 0.68 X1000 (0.0-0.7); EOS% 7.3 % (0.0-10.0); HEMATOCRIT 42.1 % (37.0-47.0); HEMOGLOBIN 13.9 g/dL (12.0-16.0); IMM GRAN# 0.06 X1000 (0.0-0.04); IMM GRAN% 0.6 % (0.0-0.5); LYMPH# 1.47 X1000 (1.2-3.4); LYMPH% 15.8 % (20.5-51.1); MONO% 7.5 % (1.7-9.3); MPV 10.1 FL (7.4-10.4); NEUT# 6.38 X1000 (1.4-6.5); NEUT% 68.5 % (42.2-75.2); PLT 267 X1000 (130-400); RBC 4.34 XMIL (4.2-5.4); RDW 12.1 % (11.5-14.5); WBC 9.32 X1000 (4.8-10.8)
[2018-11-13 06:24] LABS: AGAP 13; ALB/GLOB RATIO 0.7; ALBUMIN 2.7 g/dL (3.5-5.0); ALKALINE PHOSPHATASE 48 U/L (32-104); BUN 30 mg/dL (8-22); CALCIUM 9.8 mg/dL (8.8-10.2); CHLORIDE 100 mmol/L (98-107); COSMO 276; CREATININE 0.7 mg/dL (0.5-0.9); ESTIMATED GFR > 60; GLUCOSE 164 mg/dL (70-104); GOT 25 U/L (10-30); GPT 11 U/L (10-36); MAGNESIUM 2.3 mg/dL (1.5-2.7); PHOSPHORUS 4.6 mg/dL (2.7-4.5); SODIUM 133 mmol/L (136-145); TCO2 20 mmol/L (25-35); TOTAL BILIRUBIN 0.43 mg/dL (0.20-1.00); TOTAL PROTEIN 6.8 g/dL (6.3-8.3)
[2018-11-13 06:30] LABS: EOS 6 % (1-10); LYMPHS 16 % (21-51); MONO 10 % (1-9); SEGS 68 % (42-75)
[2018-11-13] MEDS: LOVENOX SUBQ SCH ×2 (08:05→20:05)
[2018-11-13] MEDS: NORVASC PO SCH ×2 (08:05→20:09)
[2018-11-13] MEDS: ASPIRIN PO SCH (08:06)
[2018-11-13] MEDS: COZAAR PO SCH (08:06)
[2018-11-13] MEDS: PRILOSEC PO SCH (08:06)
[2018-11-13] MEDS ORDERED: VANCOMYCIN IV PER PHARMACY MISC SCH (08:45)
--- NOTE | 2018-11-13 09:18 | PROGRESS NOTE ---
DATE: 11/13/2018 SUBJECTIVE: This morning, Ms. Nascimento looks a lot better, seems more alert. She was sleepy, but once stimulated, she would shout and move her extremities. OBJECTIVE: Vital signs: Blood pressure is 157/77, pulse is 96, respirations is 18, temperature is 97.7 degrees. General: Ms. Nascimento is an 87-year-old female. She was in bed. She was not in any cardiopulmonary distress. HEENT: Mucosa is pink and moist. Anicteric. Acyanotic. Neck: Was supple. There was no JVD. Respiratory System: There is good air entry bilaterally. Few crackles posteriorly. No wheezing. No rhonchi. No accessory muscle use. Cardiovascular System: Irregularly, irregular but rate controlled. There was no murmurs, no rubs, no gallops. Gastrointestinal: Abdomen was soft. Bowel sounds were present. No hepatosplenomegaly. Extremities: No pedal edema. Distal pulses are present. [employer]DC[employer] ASSEMBLER: Patient was asleep, but was easily arousable and will track her eyes in the room. She will also make noises upon moving her extremities. Questionable if she was hurting. LABORATORY DATA: WBC is down to 9.35, hemoglobin is 13.9, platelet count of 367 ,000. Chemistry is also reviewed. Sodium is 133, potassium is 5.0, bicarb is 20, BUN is 30. Microbiology: Urine culture showing Staph hominis. ASSESSMENT: 1. Altered mental status with no focalizing signs. Patient had MRI of the brain which did not show any acute pathology. We think this is presumed medication-induced encephalopathy on the background of severe dementia. The patient seems to be waking up, getting more alert. We are going to continue supportive measures. 2. Intracranial left internal carotid artery stenosis noted. We will continue with risk factor management including adequate blood pressure control and dyslipidemia. 3. Hypertrophic cardiomyopathy. Patient is on beta-elia. 4. Severe hypertension on presentation, improved. 5. New onset of atrial fibrillation with rapid ventricular response. The patient is currently controlled on oral metoprolol. At some point, she was on Cardizem drip. Cardiology is on board. 6. Protein calorie malnutrition. Patient is on Clinimix and lipid infusion. 7. Urinary tract infection with Staphylococcus hominis (methicillin-resistant Staphylococcus aureus). When patient got in initially, her urine culture was negative. I think this is probably catheter related. We are going to start her on vancomycin and get Infectious Disease to see the patient. I will also discontinue the Brizuela catheter. cc: Tyrell Nova MD MTDLeonardo
[2018-11-13] MEDS ORDERED: VANCOMYCIN 1 GM/NS 1 GM/250 ML IVPB IV SCH (10:00)
[2018-11-13] MEDS: LIPOSYN 20% 250 ML IV SCH (12:48)
[2018-11-13] MEDS: CUBICIN 500 MG in NS 100 ML IV SCH (13:38)
--- NOTE | 2018-11-13 13:53 | INFECTIOUS DISEASE CONSULT REP ---
DATE: 11/13/2018 CONCLUSION: The patient has a Staphylococcus hominis urinary tract infection. I think it is symptomatic. She on the 10 of November had a temperature up to 100 and her white count increased to 13,200. There was no definite reason other than the fact that the patient had a urinary tract infection. RECOMMENDATIONS: I have switched the patient from vancomycin to daptomycin. I have discontinued Lipitor and have sent instructions to nursing that the patient should not take Lipitor while she is receiving daptomycin. DISCUSSION: The patient was unable to supply a history. The history was taken from the chart. The patient was admitted with an altered mental status. She had a change in her medicines recently. She has been afebrile except for the 10 of November. Her temperature went to 100 and her white count increased to 13,200. The patient's other laboratory study showed now a CBC with a white count of 9320, hemoglobin 13.9, and platelet count 267,000. Creatinine is 0.7, GFR is greater than 60. Liver function studies are normal. Urine culture grew Staphylococcus hominis. Blood cultures are negative. Chest x-ray showed improvement in the bibasilar atelectasis in the bilateral atelectatic areas of the lungs. PAST MEDICAL HISTORY: Positive for hypertension, glaucoma, and dementia. PAST SURGICAL HISTORY: Positive for tubal ligation, hysterectomy, appendectomy, cholecystectomy, tonsillectomy and adenoidectomy, and breast biopsy. FAMILY HISTORY: Positive for pancreatic cancer. SOCIAL HISTORY: The patient lives with her . She does not drink alcoholic beverages or smoke cigarettes or abuse drugs. The patient is allergic to codeine. HOME MEDICATIONS: Include Norvasc, Abilify, diclofenac, Aricept, Cymbalta, Neurontin, and Cozaar. PHYSICAL EXAMINATION: Vital Signs: Temperature is 97.7 degrees, pulse 102, respirations 14, blood pressure 168/75, patient is 5 feet 2 inches tall, weighs 160 pounds. General: Generally, she is an obese, elderly female, who appears to be chronically ill. Head/eyes/ears/nose/throat: She has an NG tube down. There is no drainage from the nose or ears. Her eyes were closed. Neck: No stiffness. Lungs: Clear to auscultation. Cardiovascular: Irregular heart rate. Abdomen: Soft and nontender. Neurologic: The patient has a decreased level of consciousness. She does not have a tremor. She did not respond to verbal stimuli. Integument: No rash is noted. Extremities: Patient has bilateral edema but no erythema. Thank you for the consult. cc: Moo Rush MD
[2018-11-13] MEDS ORDERED: NS 500 ML IV SCH (16:00)
--- NOTE | 2018-11-13 16:37 | PROGRESS NOTE ---
DATE: 11/13/2018 SUBJECTIVE: Patient is a little more awake today. She continues in atrial fibrillation with controlled rate on current regimen. OBJECTIVE: Vital Signs: Blood pressure 142/66, heart rate 100 and irregular, oxygen saturation 96% on room air. There is no significant jugular venous distention. Chest: Clear to auscultation. Cardiac Exam: Reveals an irregular rate and rhythm without appreciable murmur or gallop. There is no evidence of peripheral edema. LABORATORY DATA: Includes a white blood cell count 9.32, hematocrit 42.1, hemoglobin 13.9, platelet count 267,000. Sodium 133, potassium 5.0, chloride 100, carbon dioxide 20, BUN 30, creatinine 0.7. Glucose 164. Albumin 2.7. IMPRESSION: 1. Cardiomyopathy with left hypertrophy and preserved left ventricular systolic function and echocardiography suggesting apical hypertrophic cardiomyopathy. 2. Atrial fibrillation starting during this admission. Heart rate controlled. 3. Patient appears clinically intravascular volume depleted. 4. Encephalopathy related to dementia and likely medication changes. This seems to be gradually improving. 5. Longstanding hypertension. 6. Depression. 7. Glaucoma. RECOMMENDATIONS: 1. Continue current cardiovascular regimen unchanged. 2. Continue Lovenox subcu b.i.d. for thromboembolic risk reduction in atrial fibrillation. 3. Intravenous fluid hydration. 4. If atrial fibrillation persists, may consider merits of antiarrhythmic therapy although she does not really seem to be asymptomatic from a standpoint of her atrial fibrillation. cc: Andrew Hyman MD
[2018-11-13] MEDS: TYLENOL NG PRN (20:05)
[2018-11-14] MEDS: LOPRESSOR NG SCH ×5 (00:39→22:45)
[2018-11-14] MEDS: TYLENOL NG PRN ×4 (00:47→17:59)
--- NOTE | 2018-11-14 07:21 | INFECTIOUS DISEASE PROGRESS NO ---
DATE: 11/14/2018 PRESENT ILLNESS: The patient has a symptomatic Staphylococcus hominis urinary tract infection. MEDICATIONS: The patient has completed 1 day of treatment with daptomycin. PHYSICAL EXAMINATION: Vital Signs: Temperature is 98 degrees, pulse 103, respirations 12, blood pressure 155/92. General: This is a somewhat obese, ill-appearing, elderly female. She is in no acute distress and today she seems more alert than she was yesterday. Head/eyes/ears/nose/throat: No drainage noted from the nose or the ears. The patient seemed to hear my spoken words and she tried to talk at times, but I could not really understand what she was saying. Neck: No stiffness. Lungs: Clear to auscultation. Cardiovascular: Heart rate is irregular. Abdomen: Abdomen and flanks soft and nontender. Neurologic: Today, as mentioned above, the patient is more alert. She did not follow request to move her extremities, but I talked to her and she tried to talk back, but I could not understand what she is saying. LAB AND X-RAY: There is no new radiographic study today. The patient's CBC shows a white count of 9320, hemoglobin 13.9, and platelet count 267,000. Creatinine 0.7. GFR is greater than 60. Liver function studies are normal. ASSESSMENT AND PLAN: The patient has a symptomatic Staphylococcus hominis urinary tract infection. My plan is to continue daptomycin for a total of 14 days. COMORBIDITIES: The patient is elderly and she has dementia. cc: Moo Rush MD
[2018-11-14] MEDS: CLINIMIX E 4.25%-5% SOLUTION 1,000 ML IV SCH ×4 (08:01→23:53)
[2018-11-14] MEDS: ASPIRIN PO SCH (08:02)
[2018-11-14] MEDS: COZAAR PO SCH (08:02)
[2018-11-14] MEDS: NORVASC PO SCH ×2 (08:02→22:45)
[2018-11-14] MEDS: PRILOSEC PO SCH (08:02)
[2018-11-14] MEDS: LOVENOX SUBQ SCH ×2 (08:03→22:45)
[2018-11-14] MEDS: LIPOSYN 20% 250 ML IV SCH (12:10)
[2018-11-14] MEDS: CUBICIN 500 MG in NS 100 ML IV SCH (14:54)
--- NOTE | 2018-11-14 17:13 | PROGRESS NOTE ---
DATE: 11/14/2018 SUBJECTIVE: Patient resting comfortably in bed. Not in any obvious distress. OBJECTIVE: Vital Signs: Temperature 97.6, pulse is 136, respirations 18, blood pressure is 139/86, oxygen saturation 100%. HEENT: She is atraumatic, normocephalic. Cardiovascular: S1, S2. Respiratory: No rales or rhonchi noted. Abdomen: Soft, nontender. No masses felt. Extremities: No evidence of edema. Central Nervous System: No obvious focal deficit noted. LABS: None. ASSESSMENT AND PLAN: 1. Encephalopathy probably secondary to medication effect/infection. Continue to follow up on patient's mental status. 2. Urinary tract infection. Continue antibiotics. 3. Atrial fibrillation with rapid ventricular rate. Cardiology following. 4. Hypertension. Continue current antihypertensive regimen. 5. Hypertrophic cardiomyopathy, aware. Continue beta blockers. 6. Carotid artery stenosis. Aware. The patient will need to follow up with Vascular Surgery post discharge from the hospital. 7. DVT prophylaxis. Lovenox. 8. GI prophylaxis. PPI. cc: Kurt Young MD
[2018-11-15] MEDS: LOPRESSOR NG SCH ×4 (04:39→22:52)
[2018-11-15] MEDS: TYLENOL NG PRN ×2 (04:39→12:52)
--- NOTE | 2018-11-15 06:34 | INFECTIOUS DISEASE PROGRESS NO ---
DATE: 11/15/2018 PRESENT ILLNESS: The patient has a symptomatic Staphylococcus hominis urinary tract infection. MEDICATIONS: The patient has been on daptomycin now for 2 days. PHYSICAL EXAMINATION: Vital Signs: Temperature is 98 degrees, pulse 82, respirations 18, blood pressure 130/82. General: This is an obese, ill-appearing, elderly female. She is in no acute distress. Head, Eyes, Ears, Nose, and Throat: No drainage noted from the nose or ears. Neck: No stiffness. Lungs: Clear to auscultation. Cardiovascular: Heart rate is irregular. Abdomen: Soft and not tender. Neurologic: The patient is sleeping today. There is no tremor. Integument: No rash noted. LABORATORY AND X-RAY: The patient's CBC shows a white count of 9320, hemoglobin 13.9, and platelet count 267,000. Creatinine is 0.7. GFR is greater than 60. Liver function studies are normal. There is no new radiographic study for today. ASSESSMENT AND PLAN: The patient has a symptomatic urinary tract infection. I plan to continue daptomycin for a total of 14 days. COMORBIDITIES: The patient is elderly and she has dementia. cc: Moo Rush MD
[2018-11-15] MEDS: COZAAR PO SCH (10:00)
[2018-11-15] MEDS: NORVASC PO SCH ×2 (10:00→21:45)
[2018-11-15] MEDS: PRILOSEC PO SCH (10:00)
[2018-11-15] MEDS: LOVENOX SUBQ SCH ×2 (10:00→21:46)
[2018-11-15] MEDS: ASPIRIN PO SCH (10:00)
--- NOTE | 2018-11-15 11:33 | PROGRESS NOTE ---
DATE: 11/15/2018 SUBJECTIVE: Patient resting in bed, not in any obvious distress. OBJECTIVE: Vital signs: respirations 18, blood pressure is 140/76, oxygen saturation 97%. HEENT: Atraumatic, normocephalic. Cardiovascular: S1, S2. Respiratory: Has evidence of good air entry bilaterally. Abdomen: Soft, nontender. No masses felt. Extremities: Trace edema in the lower extremities. Central nervous system: No obvious focal deficits noted. LABORATORIES: None. ASSESSMENT AND PLAN: 1. Encephalopathy. Improving. We will continue to follow up on patient's mental status. 2. Urinary tract infection. Continue antibiotics. The patient is currently on daptomycin per recommendation of Infectious Disease. 3. Atrial fibrillation with rapid ventricular rate. Cardiology following. Continue rate controlling agent. 4. Hypertension. Continue current antihypertensive regimen. 5. Hypertrophic cardiomyopathy. Aware. Cardiology following. 6. Carotid artery stenosis. Aware. The patient will need to follow up with Vascular Surgery post discharge from the hospital. 7. Deep vein thrombosis prophylaxis. Lovenox. 8. Gastrointestinal prophylaxis. PPI. cc: Krut Young MD MTDD
[2018-11-15] MEDS: CLINIMIX E 4.25%-5% SOLUTION 1,000 ML IV SCH (12:10)
[2018-11-15] MEDS: LIPOSYN 20% 250 ML IV SCH (12:52)
[2018-11-15] MEDS: CUBICIN 500 MG in NS 100 ML IV SCH (13:00)
--- NOTE | 2018-11-15 14:10 | Diag Imaging Result Doc PS360 ---
EXAM: CT HEAD W/O CONTRAST HISTORY: R/O CVA TECHNIQUE: CT head without contrast COMPARISON: 11/10/2018 FINDINGS: No parenchymal hemorrhage. No epidural or subdural hematoma. No subarachnoid hemorrhage. There is atrophy with chronic microvascular ischemic changes. No mass identified on this noncontrasted exam. No hydrocephalus. No sinus opacification. IMPRESSION: 1.No hemorrhage 2.Atrophy with chronic microvascular ischemic changes. This exam was performed using automated exposure control, adjustment of mA or kV according to patient size, and/or use of iterative reconstruction technique. Electronically signed by Gino Phillip 11/15/2018 2:08 PM
--- NOTE | 2018-11-15 15:26 | EEG REPORT ---
DATE: 11/10/2018 PROCEDURE: Electroencephalogram. EEG #: [id number]. COMMENT: This is a digitally recorded EEG on an 87-year-old patient with reported dementia, recent increased confusion. FINDINGS: During waking, polymorphic and rhythmic theta and delta are prominent across both hemispheres with highest amplitude frontally. Sustained posterior dominant rhythm was not identified. There was no variation to correlate with spontaneous drowsing and sleep. Photic stimulation did not significantly alter the record. No definite epileptiform discharge was identified. INTERPRETATION: Abnormal electroencephalogram because of generalized slowing. CORRELATION: This is indicative of a diffuse encephalopathy and is nonspecific. cc: MD Tyrell Beach III, MD
--- NOTE | 2018-11-15 16:44 | Diag Imaging Result Doc PS360 ---
EXAM: CHEST-PORTABLE HISTORY: NGT placement TECHNIQUE: Portable chest/abdomen single view COMPARISON: 11/10/2018 FINDINGS: A nasogastric tube overlies the esophagus and stomach. This is in good position. Electronically signed by Gino Phillip 11/15/2018 4:41 PM
[2018-11-15] MEDS ORDERED: NS 500 ML IV ONE (18:05)
[2018-11-15] MEDS ORDERED: THERAGRAN LIQUID PO SCH (18:30)
[2018-11-15] MEDS ORDERED: D5 NS 1,000 ML IV SCH (20:00)
--- NOTE | 2018-11-15 21:02 | PROGRESS NOTE ---
DATE: 11/15/2018 SUBJECTIVE: Patient continues somewhat lethargic today. She does arouse with stimulation and responds verbally. However, she quickly drifts back to sleep. She seems to move all 4 extremities. Speech is fluent with what little she says. OBJECTIVE: Vital Signs: Blood pressure 139/84, heart rate 94 and irregular, with ECG monitor showing persistent atrial fibrillation. Vital Signs: Blood pressure 139/84, oxygen saturation 96% to 100% on room air. There is no significant jugular venous distention. Chest: Clear to auscultation bilaterally. Cardiac: Reveals an irregular rate and rhythm without appreciable murmur or gallop. Extremities: Without edema. LABORATORY DATA: Includes a white blood cell count of 9.32, hematocrit 42.1, hemoglobin 13.9, platelet count 267,000. Sodium 133 potassium 5.0, chloride 100, carbon dioxide 20, BUN 30, creatinine 0.7, albumin 2.7. IMPRESSION: 1. Cardiomyopathy with left ventricular hypertrophy and preserved left ventricular systolic function. Echocardiography report appearance suggests apical hypertrophic cardiomyopathy. 2. Atrial fibrillation, beginning this admission which has persisted. Heart rate recently controlled. 3. Intravascular volume depletion suggested. 4. Encephalopathy related to dementia and aggravated by recent medication changes and probable intravascular volume depletion. 5. Longstanding hypertension. 6. Depression. RECOMMENDATIONS: 1. Give additional intravenous hydration and start maintenance IV fluids at low dose to add to her parental nutrition. 2. Continue Lovenox subcu b.i.d. for thromboembolic risk reduction. 3. Trying to coax rhythm to return to sinus rhythm with low-dose sotalol. 4. Consider Neurology consultation. cc: Andrew Hyman MD
[2018-11-15] MEDS ORDERED: CALMOSEPTINE OINTMENT TOP PRN (21:30)
[2018-11-15] MEDS: BETAPACE PO SCH (21:45)
[2018-11-15] MEDS: THIAMINE 100 MG in NS 50 ML IV SCH (21:45)
[2018-11-16] MEDS: LOPRESSOR NG SCH ×3 (04:02→16:49)
[2018-11-16 05:35] LABS: BASO# 0.06 X1000 (0.0-0.2); BASO% 0.7 % (0.0-0.8); EOS# 0.33 X1000 (0.0-0.7); EOS% 3.9 % (0.0-10.0); HEMOGLOBIN 12.3 g/dL (12.0-16.0); LYMPH# 1.77 X1000 (1.2-3.4); LYMPH% 21.1 % (20.5-51.1); MCH 32.3 PG (27-31); MCHC 33.2 g/dL (33-37); MCV 97.1 FL (81-99); MONO# 0.81 X1000 (0.11-0.59); MONO% 9.7 % (1.7-9.3); MPV 9.5 FL (7.4-10.4); NEUT# 5.42 X1000 (1.4-6.5); NEUT% 64.6 % (42.2-75.2); PLT 323 X1000 (130-400); RBC 3.81 XMIL (4.2-5.4); RDW 11.9 % (11.5-14.5); WBC 8.39 X1000 (4.8-10.8)
[2018-11-16 05:55] LABS: AGAP 10; ALB/GLOB RATIO 0.8; ALBUMIN 3.1 g/dL (3.5-5.0); ALKALINE PHOSPHATASE 40 U/L (32-104); BUN 21 mg/dL (8-22); CALCIUM 9.5 mg/dL (8.8-10.2); CHLORIDE 103 mmol/L (98-107); COSMO 277; CREATININE 0.5 mg/dL (0.5-0.9); ESTIMATED GFR > 60; GLUCOSE 139 mg/dL (70-104); GOT 17 U/L (10-30); GPT 14 U/L (10-36); POTASSIUM 4.1 mmol/L (3.5-5.1); SODIUM 136 mmol/L (136-145); TCO2 23 mmol/L (25-35); TOTAL BILIRUBIN 0.43 mg/dL (0.20-1.00)
--- NOTE | 2018-11-16 07:16 | INFECTIOUS DISEASE PROGRESS NO ---
DATE: 11/16/2018 SUBJECTIVE: The patient has a symptomatic Staphylococcus hominis urinary tract infection. MEDICATIONS: This is the third day of treatment of the patient with daptomycin. OBJECTIVE: Vital Signs: Temperature is 98.7, pulse 79, respirations 18, blood pressure 122/69. Generally: This is a chronically ill-appearing, obese, elderly female. Patient has a decreased level of consciousness. Head/eyes/ears/nose/throat: There is no drainage from the nose or ears. Neck: No stiffness. Lungs: Clear to auscultation. Cardiovascular: Irregular heart rate. Abdomen: Soft and nontender. Neurologic: As mentioned above, patient has a decreased level of consciousness. There is no tremor. She did not respond to verbal stimuli. Integument: No rash noted. LAB AND X-RAY: CT scan of the head showed ischemic changes. A CBC shows a white count of 8390, hemoglobin 12.3, and platelet count 323,000. The creatinine is 0.5. GFR is greater than 60. ASSESSMENT AND PLAN: Patient has symptomatic Staphylococcus hominis urinary tract infection. I plan to treat with daptomycin for a total of 14 days. I am going to order a CK to be drawn tomorrow morning. COMORBIDITIES: She is elderly. She has dementia and ischemia of the brain. cc: Moo Rush MD
[2018-11-16] MEDS ORDERED: ARICEPT PO SCH (09:00)
[2018-11-16] MEDS: LOVENOX SUBQ SCH ×2 (09:04→21:58)
[2018-11-16] MEDS: NORVASC PO SCH ×2 (09:05→21:58)
[2018-11-16] MEDS: BETAPACE PO SCH ×2 (09:05→21:58)
[2018-11-16] MEDS: PRILOSEC PO SCH (09:05)
[2018-11-16] MEDS: ASPIRIN PO SCH (09:05)
[2018-11-16] MEDS: NON-FORMULARY BULK MED PO SCH (09:05)
[2018-11-16] MEDS: COZAAR PO SCH (09:05)
[2018-11-16 09:34] LABS: INR 0.98; PROTIME 13.7 Seconds (11.0-16.0)
[2018-11-16] MEDS: CLINIMIX E 4.25%-5% SOLUTION 1,000 ML IV SCH ×2 (10:35→21:54)
[2018-11-16] MEDS ORDERED: NS 250 ML ONE (10:43)
[2018-11-16] MEDS ORDERED: SODIUM CHLORIDE 0.9% INJ SCH (11:00)
--- NOTE | 2018-11-16 11:22 | CONSULTATION ---
DATE OF CONSULTATION: 11/16/2018 ATTENDING PHYSICIAN: Dr. Young. PRIMARY CARE DOCTOR: None. REASON FOR CONSULTATION: Evaluate for PEG tube. HISTORY OF PRESENT ILLNESS: Ms. Nascimento is an 87-year-old female who was admitted on 11/07/2018 for altered mental status, weakness, confusion. She has a baseline history of dementia. She has history of previous infections like UTIs. During this admission, she was being managed for encephalopathy, severe dementia, and was noted to have intracranial left internal carotid artery stenosis. She also has been treated for malnutrition with Clinimix and lipid infusion. She has been seen by the swallow [employer] team and will follow up their official recommendations. According to the son at bedside, she could not swallow per bedside assessment. She is also being treated for a UTI with antibiotics. She had an NG tube placed for nutrition purposes. Gastroenterology was consulted for further management including consideration for PEG tube placement. I discussed that option with the patient's family at bedside including risks, benefits, indications, and alternatives. PAST MEDICAL HISTORY: Severe dementia, left eye glaucoma, hypertension, UTI, question of previous CVA. PAST SURGICAL HISTORY: Tubal ligation, hysterectomy, appendectomy, cholecystectomy, tonsillectomy, adenoidectomy, and breast biopsy. FAMILY HISTORY: Mother had pancreatic cancer. SOCIAL HISTORY: She has a very supportive son at bedside. No history of alcohol, tobacco, or illicit drugs. ALLERGIES: Codeine. MEDICATIONS IN THE HOSPITAL: Include Tylenol, Norvasc, aspirin, amino acid at 65 mL per hour, dextrose 5%, normal saline at 50 mL per hour, daptomycin, Lovenox b.i.d., labetalol, fat emulsion, Cozaar, zinc oxide ointment/menthol, Lopressor, Prilosec - we will switch it to IV Zofran 4 mg IV every 4 hours, sotalol, thiamine. DIET: She is currently on a pureed diet and Ensure. REVIEW OF SYSTEMS: Could not be obtained. The patient is nonverbal and has dementia. PHYSICAL EXAMINATION: Vital Signs: Temperature 98.4 degrees, pulse rate of 107 , respiratory rate of 14, blood pressure 130/89, saturating 97% on room air. Body weight of 162 pounds, BMI 29.6 kg/m2. General Appearance: Moderately built, moderate nourished, lying in bed , in no acute distress. HEENT: No pallor. No icterus. NG tube in place. Neck: Supple. Abdomen: Protuberant, soft, nondistended. No guarding. Extremities: No cyanosis, clubbing. Neurologic: She is nonverbal. She was able to wake up on command, was not able to answer any questions. LABS: Hemoglobin and hematocrit are 12.3 and 37, white count of 8.39, platelet count of 323,000. INR of 0.9 and a PT of 13.7. Sodium of 136, potassium 4.1, chloride 103, bicarb of 23, anion gap of 10, BUN of 21, creatinine 0.5, glucose of 139, calcium 9.5. Total bilirubin is 0.43, AST 17, ALT 14, alkaline phosphatase 40, total protein 7, albumin 3.1, prealbumin of 11. Urinalysis showed large blood. Urine culture showed Staphylococcus hominis. Blood culture x2 negative in 5 days. Chest x-ray done yesterday showed the nasogastric tube overlies the esophagus and stomach, and is in good position. IMPRESSION AND PLAN: 1. Dysphagia in the setting of severe dementia and encephalopathy. We will await the final recommendations from the swallow evaluation. At this point, we will keep her on strict aspiration precautions. We will keep her nothing per oral for now. She is getting nutrition through the intravenous Clinimix and fat emulsion. 2. We will try to switch her medicines to intravenous or through the nasogastric tube. 3. I have discussed the options of doing a percutaneous endoscopic gastrostomy tube placement with the patient's son at bedside. I have discussed the risks, benefits, indications, and alternatives to the procedure. The patient's son will discuss it with the other family members and will let us know. In the meanwhile, we will keep her on gastrointestinal prophylaxis with proton pump inhibitors. She will continue aspiration precautions. She will continue on treatment for a urinary tract infection with daptomycin. 4. Further, if we are able to proceed with percutaneous endoscopic gastrostomy tube placement, her Lovenox will have to be withheld 12 hours before the procedure. 5. The above plans were discussed with the patient's family and all questions were answered. Please call us with any further questions. cc: MD Kurt Sung MD [facility]
[2018-11-16] MEDS: PROTONIX IV SCH (11:36)
--- NOTE | 2018-11-16 11:57 | Diag Imaging Result Doc PS360 ---
EXAM: CHEST-PORTABLE HISTORY: CONFIRM PICC LINE PLACEMENT TECHNIQUE: Portable chest COMPARISON: 11/15/2018 FINDINGS: Interval placement of a right-sided PICC line. The tip lies at the junction of superior vena cava and right atrium. There has been no other interval change. Nasogastric tube remains in good position as well. IMPRESSION: Right-sided PICC line in good position. Electronically signed by Gino Phillip 11/16/2018 11:55 AM
[2018-11-16] MEDS: CUBICIN 500 MG in NS 100 ML IV SCH (12:25)
--- NOTE | 2018-11-16 14:08 | PROGRESS NOTE ---
DATE: 11/16/2018 SUBJECTIVE: Patient is resting in bed. She is not in any obvious distress. She has an NG tube in place. OBJECTIVE: Vital signs: Temperature is 98.2 degrees, pulse 123, respirations 11, blood pressure 102/60, oxygen saturation 96%. HEENT: She is atraumatic, normocephalic. Cardiovascular: S1, S2. Respiratory: No rales or rhonchi noted. Abdomen: Soft, nontender. No masses felt. Extremities: No evidence of edema. Central nervous system: The patient is awake and she speaks minimally. LABS: WBC is 8.39, hematocrit is 37, with a platelet count of 323,000. Sodium is 136, potassium is 4.1, chloride is 103, bicarb is 23, BUN is 21, creatinine 0.5. ASSESSMENT AND PLAN: 1. Encephalopathy. Improving. Continue to follow up patient's mental status. 2. Urinary tract infection. Continue antibiotics as recommended by ID. 3. Atrial fibrillation with rapid ventricular rate. Cardiology following. 4. Hypertrophic cardiomyopathy. Aware. Cardiology following. 5. Hypertension. Continue current antihypertensive regimen. 6. Coronary artery disease. Follow up with Vascular Surgery post discharge from the hospital. 7. Dysphagia. Maintain patient on NG feeding. Consult with GI for endoscopic studies and also possible PEG placement. 8. Deep vein thrombosis prophylaxis. Lovenox. 9. Gastrointestinal prophylaxis. PPI. cc: Kurt Young MD
[2018-11-16] MEDS ORDERED: LOPRESSOR NG SCH (17:15)
--- NOTE | 2018-11-16 20:34 | PROGRESS NOTE ---
DATE: 11/16/2018 SUBJECTIVE: The patient more alert this afternoon, and was very interactive with her daughter. According to her daughter, she is presently more sleepy at this point. OBJECTIVE: Vital Signs: Blood pressure 128/71, heart rate 124, oxygen saturation 92 to 96 percent. Neck: There is no significant jugular venous distention. Chest: Clear to auscultation bilaterally. Cardiac: Reveals a regular rate and rhythm, without appreciable murmur or gallop. There is no evidence of peripheral edema. LABORATORY DATA: White blood cell count 8.39, hematocrit 37.0, hemoglobin 12.3, platelet count 323,000. Sodium 136, potassium 4.1, chloride 103, carbon dioxide 23, BUN 21, creatinine 0.5, glucose 139, albumin 3.1. IMPRESSION: 1. 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 2. Persistent atrial fibrillation. Heart rate mildly elevated. 3. Intravascular volume depletion. Seems to have been corrected. 4. Encephalopathy related to dementia, and aggravated by recent medication changes and medical issues. 5. Longstanding hypertension. 6. Depression. RECOMMENDATIONS: 1. Increase sotalol to 80 mg p.o. b.i.d. 2. Continue Lovenox subcu b.i.d. for thromboembolic risk protection. 3. Reduce the IV fluid rate. 4. If the patient returns to sinus rhythm, will plan on withdrawing sotalol to see if she can maintain sinus rhythm. cc: Andrew Hyman MD
[2018-11-16] MEDS: THIAMINE 100 MG in NS 50 ML IV SCH (21:37)
[2018-11-16] MEDS: D5 NS 1,000 ML IV SCH (21:38)
[2018-11-16] MEDS: LIPOSYN 20% 250 ML IV SCH (21:53)
[2018-11-17] MEDS: LOPRESSOR NG SCH ×3 (01:04→17:22)
[2018-11-17] MEDS: BETAPACE PO SCH ×2 (09:26→21:44)
[2018-11-17] MEDS: COZAAR PO SCH (09:27)
[2018-11-17] MEDS: LOVENOX SUBQ SCH ×2 (09:27→21:44)
[2018-11-17] MEDS: ASPIRIN PO SCH (09:27)
[2018-11-17] MEDS: NORVASC PO SCH ×2 (09:27→21:43)
--- NOTE | 2018-11-17 09:31 | INFECTIOUS DISEASE PROGRESS NO ---
DATE: 11/17/2018 PRESENT ILLNESS: The patient has a staph hominis urinary tract infection. MEDICATIONS: Patient has been receiving daptomycin for treatment of the staph urinary tract infection for the 4th day as of today. PHYSICAL EXAMINATION: VITAL SIGNS: Temperature is 97.7 degrees, pulse 123, respirations 20, blood pressure 149/64. GENERAL: This is an ill-appearing obese elderly female. She has a decreased loss of consciousness. HEAD, EYES, EARS, NOSE AND THROAT: There is no drainage from the nose or ears. The patient did not follow requests to open her mouth. NECK: No meningismus. LUNGS: Clear to auscultation. CARDIOVASCULAR: Heart rate today seemed regular to me. ABDOMEN: Soft and nontender. NEUROLOGIC: The patient has a decreased loss of consciousness. There is no tremor. LAB AND X-RAY: CBC shows a white count of 8,390, hemoglobin 12.3 and platelet count 323,000. Creatinine 0.5. GFR is greater than 60. The patient's CK is 103. ASSESSMENT AND PLAN: The patient has symptomatic staph urinary tract infection. The plan is to continue daptomycin to complete a 14 day treatment course. COMORBIDITIES: The patient is elderly. She also has dementia and ischemia of the brain. cc: Moo Rush MD
[2018-11-17] MEDS: NON-FORMULARY BULK MED PO SCH (10:01)
--- NOTE | 2018-11-17 11:39 | EKG Report ---
Test Performed on : 11/17/2018 11:10:58 AM Test Reason : afib Blood Pressure : / mmHG Vent. Rate : 096 BPM Atrial Rate : 089 BPM P-R Int : 000 ms QRS Dur : 094 ms QT Int : 408 ms P-R-T Axes : 000 010 159 degrees QTc Int : 515 ms Atrial fibrillation. Minimal voltage criteria for LVH, may be normal variant ST & T wave abnormality, consider anterolateral ischemia Prolonged QT Abnormal ECG When compared with ECG of 10-NOV-2018 13:24, ST no longer depressed in Anterior leads Confirmed by Mohsen FIORE, Cornelius Alvarado ([id number]) on 11/18/2018 8:42:37 AM
--- NOTE | 2018-11-17 11:44 | CONSULTATION ---
DATE OF CONSULTATION: 11/17/2018 HISTORY OF PRESENT ILLNESS: Ms. Nascimento is 87 years old with longstanding dementia, admitted with increased confusion. She has evidence of UTI, and BUN has risen from 10s at baseline to 32 and now back to 21. Sodium has been stable in the low 130s. Blood sugars have ranged 130s to 200s. We did not have urine drug screen this admission, but her medicine list does not show anything that likely would have shown up in toxicology. History from her attentive son at the bedside is that she has had dementia diagnosed a few years ago, forgetful some time prior to that. She has been gradually getting worse with typical downhill course. She had been taking escitalopram 20 mg daily chronically and aripiprazole 5 mg daily chronically, at least a few years, probably several years. Gabapentin has been onboard for significant time. Son reports a few weeks ago that escitalopram was switched to duloxetine 60 mg daily. Aripiprazole was continued and donepezil 10 mg daily was started at or about the same time. Within a few days, she seemed to be doing worse, harder to keep alert, more confused and more feeble. Prior to this, she was in good shape physically, getting herself to the bathroom , dressing herself, feeding herself, walking without assistance. She had lived alone with milder dementia after a few years ago, and family was checking on her regularly. Several months ago after a few falls, son moved in with her. Falls were not associated with serious head injury. There is no history of stroke, seizure, ethanol abuse, illicit drug use, other neurologic event. Workup here includes noncontrast CT of the head done 11/15/2018 showing old changes, nothing focal or acute, no bleeding. EEG 11/10/2018 showed generalized slowing. She has been afebrile. PHYSICAL EXAMINATION: On exam, Ms. Nascimento is supine, awake, alert, and attentive. She answered a few simple questions. She spoke her name. Speech is a little bit dysarthric , but easily understood. Language function seems intact on very brief bedside testing. I did not test her cognitive function. Head and neck are unremarkable. She was not attentive to visual field testing. I believe she has poor acuity. Extraocular movements are full laterally with limited upgaze typical for age. Facial motility is diminished bilaterally, but symmetric. She has some discomfort causing her to splint her right arm. She had good power symmetrically in the limbs. Tone is symmetric on the right and left. I did not test her gait. IMPRESSION: Global encephalopathy, baseline dementia, recent increased confusion and possible low activity delirium associated with toxic/metabolic state. I told son frankly I am not certain any single particular medication or medication change is responsible and I suspect this is more likely a combination of factors including her age, baseline dementia which was progressing, possibly medication changes, associated urinary tract infection, transient mild uremia. Review of her current medication list shows donepezil, duloxetine and aripiprazole are not on board here in the hospital. There is nothing on current medication list that likely would be having significant impact on her mental state. As discussed with son at some length, I think it is reasonable to continue holding duloxetine, gabapentin, aripiprazole, and any one of these could be resumed later if needed. I do not think donepezil was responsible for her recent mental state. Son did not notice diarrhea or other typical cholinergic side effects. Donepezil could be resumed when she is swallowing consistently. Later, depending on her clinical course, memantine could be added. I discussed frankly with son the fact that patient is 87 years old with declining cognitive status, and we should focus on keeping her comfortable without expectation of major cognitive improvement. Thanks for asking Neurology to see Ms. Nascimento. cc: MD MELY Beach III
[2018-11-17] MEDS: CLINIMIX E 4.25%-5% SOLUTION 1,000 ML IV SCH ×2 (12:24→15:06)
[2018-11-17] MEDS ORDERED: DULCOLAX PR PRN (12:28)
[2018-11-17] MEDS: PROTONIX IV SCH (12:28)
--- NOTE | 2018-11-17 12:47 | PROGRESS NOTE ---
DATE: 11/17/2018 SUBJECTIVE: The patient continues somewhat drowsy, She has not had a bowel movement in several days. She remains in atrial fibrillation with increased ventricular rate response. OBJECTIVE: Vital Signs: Blood pressure 106/74, heart rate 95 to 123 and irregular, oxygen saturation 92 to 94 percent on room air. Neck: There is no significant jugular venous distention. Chest: Clear to auscultation. Cardiac: Exam reveals an irregular rate and rhythm without appreciable murmur or gallop. IMPRESSION: 1. Cardiomyopathy with left ventricular hypertrophy and preserved left ventricular ejection fraction. Echocardiography suggests apical hypertrophic cardiomyopathy. No signs of congestive heart failure. 2. Persistent atrial fibrillation. Heart rate remains mildly elevated. 3. Encephalopathy related to dementia and aggravated by recent medication changes and medical issues. 4. Longstanding hypertension. 5. Depression. 6. Constipation. RECOMMENDATIONS: 1. Continue sotalol as tolerated. Ultimately, if the patient remains in atrial fibrillation, will gravitate toward managing her very conservatively with rate control and aspirin p.o. daily. 2. Continue Lovenox subcutaneously b.i.d. for thromboembolic risk protection, for now. The patient has a tendency for falling and probably is not a suitable candidate for long-term anticoagulation. 3. Dulcolax suppositories to try and address constipation. cc: Andrew Hyman MD
[2018-11-17] MEDS: CUBICIN 500 MG in NS 100 ML IV SCH (13:56)
[2018-11-17] MEDS: D5 NS 1,000 ML IV SCH (17:23)
--- NOTE | 2018-11-17 20:41 | PROGRESS NOTE ---
DATE: 11/17/2018 SUBJECTIVE: Patient resting on bed. She does have an NG tube in place. She has family present in the room. OBJECTIVE: Vital Signs: Temperature 97.9 degrees, pulse 81, respiratory 18, blood pressure 138/67, oxygen 99%. HEENT: Atraumatic, normocephalic. Cardiovascular: S1, S2. Respiratory: Has evidence of good air entry bilaterally. Abdomen: Soft, nontender, no masses felt. Extremities: No evidence of edema. Central nervous system: No obvious focal deficits noted. ASSESSMENT AND PLAN: 1. Encephalopathy. Probably related to infection. Cannot rule out the possibility of medication effect. Continue to follow up patient's mental status. Neurology consulted. 2. Urinary tract infection. Continue antibiotics . 3. Atrial fibrillation. Cardiology managing. 4. Hypertrophic cardiomyopathy. Await Cardiology for managing. 5. Hypertension. Continue current antihypertensive regimen. 6. Coronary artery disease. Patient will need vascular surgery post discharge from the hospital. 7. Dysphagia, gastroenterology consulted. Maintain patient NG tube feeding for now. The patient did not do well with a swallow evaluation. 8. Deep vein thrombosis prophylaxis Lovenox. 9. Gastrointestinal prophylaxis PPI. cc: Kurt Young MD MTDD
[2018-11-17] MEDS: THIAMINE 100 MG in NS 50 ML IV SCH (21:44)
[2018-11-17] MEDS: LIPOSYN 20% 250 ML IV SCH (22:10)
[2018-11-18] MEDS: TRANSDERM-SCOP TD SCH (00:46)
[2018-11-18] MEDS: LOPRESSOR NG SCH ×3 (01:44→17:23)
[2018-11-18] MEDS: CLINIMIX E 4.25%-5% SOLUTION 1,000 ML IV SCH ×2 (02:18→19:59)
[2018-11-18] MEDS: ASPIRIN PO SCH (08:07)
[2018-11-18] MEDS: BETAPACE PO SCH ×2 (08:07→21:53)
[2018-11-18] MEDS: NON-FORMULARY BULK MED PO SCH (08:07)
[2018-11-18] MEDS: COZAAR PO SCH (08:07)
[2018-11-18] MEDS: NORVASC PO SCH ×2 (08:07→21:53)
[2018-11-18] MEDS: LOVENOX SUBQ SCH ×2 (08:08→21:54)
[2018-11-18] MEDS: TYLENOL NG PRN (10:24)
[2018-11-18] MEDS: LASIX IV SCH (12:15)
[2018-11-18] MEDS: CUBICIN 500 MG in NS 100 ML IV SCH (12:42)
[2018-11-18] MEDS: PROTONIX IV SCH (13:11)
--- NOTE | 2018-11-18 13:23 | PROGRESS NOTE ---
DATE: 11/18/2018 SUBJECTIVE: The patient is now progressively lethargic and demonstrates Irving-Maldonado respirations. OBJECTIVE: Vital Signs: Blood pressure 102/46, heart rate 80, oxygen saturation 94% on oxygen mask. Neck: Jugular venous distention is suggested. Respiratory: Auscultation of the chest reveals somewhat diminished breath sounds at the bases. Cardiac: Examination reveals an irregular rate and rhythm without appreciable murmur or gallop. Extremities: There is no evidence of peripheral edema. LABORATORY DATA: No laboratory data obtained today. IMPRESSION: 1. Worsening encephalopathy in the setting of significant dementia. I suspect her overall medical condition may be contributing to decline in the mental status. I suspect this is largely due to significant dementia but her overall medical condition may be leading to additional decline in mental status. She seems to manifest some signs of congestive heart failure. 2. Persistent atrial fibrillation. Heart rate control. 3. Cardiomyopathy, with left ventricular hypertrophy and preserved left ventricular ejection fraction. She appears to manifest some signs of acute diastolic heart failure. 4. Longstanding hypertension. 5. Depression. RECOMMENDATIONS: 1. Continue sotalol as tolerated. However, ultimately it is probably best for her to be managed conservatively from a cardiovascular standpoint with rate control and aspirin daily. It is hoped that perhaps sotalol will allow her to convert to sinus rhythm. 2. Continue Lovenox as tolerated twice daily for thromboembolic risk protection. The patient has a tendency for falling and is probably not a suitable candidate for long-term anticoagulation. 3. Diurese with intravenous Lasix. 4. The patient's overall condition was discussed with her family. They are considering advanced directives. They are against resuscitative measures in the event of cardiac arrest. Desire not to pursue a PEG tube. cc: Andrew Hyman MD
--- NOTE | 2018-11-18 13:29 | Diag Imaging Result Doc PS360 ---
EXAM: CHEST-PORTABLE 11/18/2018 HISTORY: dyspnea TECHNIQUE: AP portable upright at 1321 COMMENT: There is an NG tube with its tip below the diaphragm. There is a PICC line on the right with its tip in the superior vena cava. There is opacification of the lateral left lower lobe obscuring portions of the hemidiaphragm. This was not the case on 11/16/2018. There are also portions of the cardiac apex obscured. IMPRESSION: Atelectasis versus pneumonia left lower lobe and lingula. Electronically signed by Dario Hook 11/18/2018 1:27 PM
[2018-11-18] MEDS ORDERED: MYCOSTATIN SUSP PO ONE (14:11)
[2018-11-18] MEDS: MYCOSTATIN SUSP PO SCH ×2 (17:04→21:54)
[2018-11-18] MEDS: D5 NS 1,000 ML IV SCH (17:04)
--- NOTE | 2018-11-18 17:51 | PROGRESS NOTE ---
DATE: 11/18/2018 SUBJECTIVE: The patient herself is somewhat sedated. Does not answer questions or follow commands. Family is in the room. Currently they have no questions. They understand that she is quite ill. They know that she has been having intermittent episodes of labored breathing that is shallow at times, and that starting earlier this afternoon, she is no longer adequately able to communicate with them, whereas she had been previously. PHYSICAL EXAMINATION: Vital Signs: Temperature 98, pulse 84, respiratory rate 20, blood pressure 113/59, saturations reviewed. General: The patient is lying in bed. She is currently in no respiratory distress. . HEENT: Normocephalic. Neck: Supple. CV: Regular rate. Chest: Clear. Nonlabored. Abdomen: Soft. Extremities: She has no edema. Neurologic: She has no focal deficits noted; however, she does not answer questions or follow commands. ASSESSMENT: 1. Urinary tract infection. 2. Baseline dementia. 3. Atrial fibrillation, now on sotalol. Appears rate controlled presently. 4. Hypertension. 5. Hyperlipidemia. 6. Hypertrophic cardiomyopathy. 7. Metabolic encephalopathy. 8. She is a DO NOT RESUSCITATE level 1. PLAN: Will continue the patient in the hospital. Continue sotalol. Continue to follow. I agree with Cardiology that she is not a good long-term candidate for anticoagulation due to her extreme fall risk. She is quite ill. Discussed with family that I not believe she will survive this incident. cc: Emiel Dillard MD MTDD
[2018-11-18] MEDS: THIAMINE 100 MG in NS 50 ML IV SCH (21:53)
[2018-11-18] MEDS: LIPOSYN 20% 250 ML IV SCH (23:07)
[2018-11-19] MEDS: LOPRESSOR NG SCH ×3 (00:37→16:49)
[2018-11-19] MEDS: LASIX IV SCH (00:37)
[2018-11-19] MEDS: BETAPACE PO SCH ×2 (08:26→21:22)
[2018-11-19] MEDS: LOVENOX SUBQ SCH ×2 (08:26→21:21)
[2018-11-19] MEDS: ASPIRIN PO SCH (08:26)
[2018-11-19] MEDS: COZAAR PO SCH (08:26)
[2018-11-19] MEDS: MYCOSTATIN SUSP PO SCH ×4 (08:27→21:22)
[2018-11-19] MEDS: NON-FORMULARY BULK MED PO SCH (08:27)
[2018-11-19] MEDS: NORVASC PO SCH (08:28)
[2018-11-19] MEDS ORDERED: BETAPACE PO ONE (12:17)
[2018-11-19] MEDS ORDERED: LASIX IV ONE (12:33)
--- NOTE | 2018-11-19 12:57 | PROGRESS NOTE ---
DATE: 11/19/2018 SUBJECTIVE: Patient is a little more awake today but still not very interactive. She no longer manifests Irving-Maldonado respirations. OBJECTIVE: Vital Signs: Blood pressure 105/49, heart rate 78 with ECG monitor showing atrial fibrillation with controlled rate. Oxygen saturation 100% on oxygen mask. Neck: Jugular venous distention cannot be appreciated. Chest: Clear to auscultation anteriorly. Cardiac: Reveals an irregular rate and rhythm without appreciable murmur or gallop. Extremities: Without edema. LABORATORY DATA: Pending. IMPRESSIONS: 1. Encephalopathy in the setting of significant dementia aggravated by medical issues and recent medication changes. 2. Persistent atrial fibrillation of recent onset. Rate controlled. 3. Hypertrophic cardiomyopathy. 4. Suspect residual diastolic heart failure in the setting of cardiomyopathy and atrial fibrillation. 5. Depression. RECOMMENDATIONS: 1. Diurese further. 2. Continue Lovenox as tolerated. 3. Try increasing sotalol dose as tolerated. However, if atrial fibrillation persists by tomorrow, will transition to rate control and aspirin daily given her significant comorbidities. She has a tendency for falling is probably not a suitable candidate for long- term anticoagulation. cc: Andrew Hyman MD
[2018-11-19] MEDS: CUBICIN 500 MG in NS 100 ML IV SCH (13:13)
[2018-11-19] MEDS: PROTONIX IV SCH (13:13)
[2018-11-19 13:23] LABS: AGAP 11; BUN 25 mg/dL (8-22); CALCIUM 8.9 mg/dL (8.8-10.2); CHLORIDE 99 mmol/L (98-107); COSMO 275; CREATININE 0.5 mg/dL (0.5-0.9); ESTIMATED GFR > 60; GLUCOSE 142 mg/dL (70-104); POTASSIUM 3.8 mmol/L (3.5-5.1); SODIUM 134 mmol/L (136-145); TCO2 24 mmol/L (25-35)
[2018-11-19] MEDS: CLINIMIX E 4.25%-5% SOLUTION 1,000 ML IV SCH (13:25)
--- NOTE | 2018-11-19 15:42 | PROGRESS NOTE ---
DATE: 11/19/2018 INTERVAL HISTORY: The patient is still quite encephalopathic most of the time. Discussed with family at bedside. Reports that she occasionally wakes up and speaks a few words briefly, but has remained quite somnolent most of the time. Afebrile. Atrial fibrillation remains rate controlled. No acute events overnight. REVIEW OF SYSTEMS: Unable to obtain secondary to patient's mental status. LABORATORY: Sodium 134, BUN 25, creatinine 0.5, glucose 142, BNP 1837. IMAGING: Chest x-ray yesterday showing ongoing opacification to the lateral left lower lobe. Favor atelectasis, but pneumonia not excluded. VITALS: T-max 98.6 degrees, pulse 78, respirations 19, blood pressure 105/49, and O2 saturation 100% on Ventimask. PHYSICAL EXAMINATION: General: No acute distress. Markedly somnolent. Vitals: As above. HEENT: Normocephalic, atraumatic. No cervical adenopathy. Cardiovascular: Irregular rhythm, but normal rate. No murmurs noted. Pulmonary: Clear to auscultation bilaterally with slight decrease at the bases. Abdomen: Soft, nontender, and nondistended. Bowel sounds decreased but positive. Extremities: Peripheral pulses intact. No clubbing or cyanosis. Neurologic: Pupils equal, round, and reactive to light. No facial asymmetry. No clear deficits by exam, limited by patient's mental status. Skin: No new rashes or lesions noted. Psychiatric: Still quite somnolent, will arouse briefly to light stimulation but does not follow any commands. Does not speak. No purposeful movement. ASSESSMENT AND PLAN: 1. Metabolic encephalopathy multifactorial with underlying advancing dementia and acute infection with UTI, possible pneumonia. Some waxing and waning with some minimal improvement, but remains quite encephalopathic most of the time. She remains on daptomycin for Staph hominis UTI. We will continue to monitor mental status. Long conversation with patient's daughter today regarding goals of care. They wish to continue everything for now but are considering hospice if the patient's mental status continues to remain an issue. We will ask palliative care to speak with them when they are available. 2. Atrial fibrillation. Remains in atrial fibrillation, but rate controlled on current medication. Cardiology following. 3. Likely acute on chronic diastolic congestive heart failure. BNP remains elevated. Still requiring oxygen. Cardiology following dosing diuretics on a day-to-day basis. Continue to monitor and wean O2 as possible. 4. Hypertension. Good control on losartan and metoprolol. Holding home Norvasc. Continue to monitor blood pressure. 5. Hyperlipidemia. We will likely restart home pravastatin if patient is agreeable to take p.o. reliably. 6. Nutrition. The patient has been unable to arouse significantly enough to reliably take p.o. She is on Clinimix. Discussed with family that nutrition is likely to be an issue if she remains encephalopathic for prolonged period. They do not wish for a PEG tube to be considered. 7. Deep vein thrombosis prophylaxis. Lovenox. 8. Disposition: Likely will need placement if mental status improves. If the patient and mental status does not improve over the next day or 2, then family may consider hospice.
[2018-11-19] MEDS: TYLENOL NG PRN (16:49)
[2018-11-19] MEDS ORDERED: NS 250 ML IV ONE (19:12)
[2018-11-19] MEDS: THIAMINE 100 MG in NS 50 ML IV SCH (21:21)
[2018-11-19] MEDS: LIPOSYN 20% 250 ML IV SCH (21:22)
[2018-11-19] MEDS: D5 NS 1,000 ML IV SCH (23:07)
[2018-11-20] MEDS: CLINIMIX E 4.25%-5% SOLUTION 1,000 ML IV SCH ×2 (00:24→16:53)
--- NOTE | 2018-11-20 06:49 | INFECTIOUS DISEASE PROGRESS NO ---
DATE: 11/20/2018 PRESENT ILLNESS: The patient has Staph hominis urinary tract infection. On the patient's latest chest x-ray, there is a possibility that the patient may have a left lower lobe and lingular pneumonia versus atelectasis. MEDICATIONS: Patient currently is receiving daptomycin for the urinary tract infection. This is the 7th day of treatment with daptomycin. PHYSICAL EXAMINATION: Vital Signs: Temperature is 97.7 degrees, pulse 63, respirations 18, blood pressure 90/59. General: This is a lethargic, obese, elderly female. She is in no acute distress. Head, Eyes, Ears, Nose, and Throat: No drainage noted from the nose or ears. Neck: No stiffness. Lungs: Clear to auscultation. Cardiovascular: Heart rate is regular. Abdomen: Soft and nontender. Neurologic: The patient is lethargic. She moved a little bit in her bed. She did not follow any request to move her extremities. There is no tremor. Integument: No rash noted. LAB AND X-RAY: The patient's chest x-ray shows left lower lobe and lingular pneumonia/atelectasis. Creatinine is 0.5, GFR is greater than 60. ASSESSMENT AND PLAN: Patient has urinary tract infection and possible pneumonia. I am going to continue with daptomycin for 7 more days for the urinary tract infection. I have added cefepime in case the patient has a pneumonia and I have ordered a CBC, procalcitonin level and CK for this morning. COMORBIDITIES: The patient is elderly. She has dementia and ischemia of the brain. cc: Moo Rush MD
--- NOTE | 2018-11-20 07:06 | EKG Report ---
Test Performed on : 11/18/2018 06:29:15 AM Test Reason : afib Blood Pressure : / mmHG Vent. Rate : 099 BPM Atrial Rate : 113 BPM P-R Int : 000 ms QRS Dur : 082 ms QT Int : 338 ms P-R-T Axes : 000 004 156 degrees QTc Int : 433 ms Sinus tachycardia. with 2nd degree AV block (Mobitz I). Left ventricular hypertrophy with repolarization abnormality Abnormal ECG When compared with ECG of 17-NOV-2018 11:10, (Unconfirmed) Sinus rhythm. has replaced Atrial fibrillation. T wave inversion less evident in Anterior leads QT has shortened Confirmed by Mohsen FIORE, Cornelius Alvarado ([id number]) on 11/20/2018 9:42:13 AM
--- NOTE | 2018-11-20 07:53 | EKG Report ---
Test Performed on : 11/19/2018 2:04:11 PM Test Reason : atrial fib Blood Pressure : / mmHG Vent. Rate : 084 BPM Atrial Rate : 127 BPM P-R Int : 000 ms QRS Dur : 080 ms QT Int : 414 ms P-R-T Axes : 000 011 155 degrees QTc Int : 489 ms Atrial fibrillation. Moderate voltage criteria for LVH, may be normal variant ST & T wave abnormality, consider anterolateral ischemia Prolonged QT Abnormal ECG When compared with ECG of 18-NOV-2018 06:29, (Unconfirmed) Atrial fibrillation. has replaced Sinus rhythm. T wave inversion more evident in Anterolateral leads QT has lengthened Confirmed by Mohsen FIORE, Cornelius Alvarado ([id number]) on 11/20/2018 9:53:07 PM
--- NOTE | 2018-11-20 07:55 | EKG Report ---
Test Performed on : 11/19/2018 8:28:50 PM Test Reason : atrial fib Blood Pressure : / mmHG Vent. Rate : 060 BPM Atrial Rate : 060 BPM P-R Int : 188 ms QRS Dur : 082 ms QT Int : 484 ms P-R-T Axes : 066 006 149 degrees QTc Int : 484 ms Normal sinus rhythm. Left ventricular hypertrophy with repolarization abnormality Abnormal ECG When compared with ECG of 19-NOV-2018 14:04, (Unconfirmed) Sinus rhythm. has replaced Atrial fibrillation. Confirmed by Mohsen FIORE, Cornelius Alvarado ([id number]) on 11/20/2018 10:04:56 PM
[2018-11-20 08:41] LABS: BASO# 0.04 X1000 (0.0-0.2); BASO% 0.4 % (0.0-0.8); EOS# 0.44 X1000 (0.0-0.7); EOS% 4.5 % (0.0-10.0); HEMATOCRIT 30.6 % (37.0-47.0); HEMOGLOBIN 9.9 g/dL (12.0-16.0); IMM GRAN# 0.03 X1000 (0.0-0.04); IMM GRAN% 0.3 % (0.0-0.5); LYMPH% 15.2 % (20.5-51.1); MCHC 32.4 g/dL (33-37); MONO# 0.84 X1000 (0.11-0.59); MONO% 8.5 % (1.7-9.3); MPV 9.6 FL (7.4-10.4); NEUT# 6.99 X1000 (1.4-6.5); NEUT% 71.1 % (42.2-75.2); PLT 260 X1000 (130-400); RBC 3.09 XMIL (4.2-5.4); RDW 11.6 % (11.5-14.5); WBC 9.84 X1000 (4.8-10.8)
[2018-11-20] MEDS: LOVENOX SUBQ SCH ×2 (09:40→20:12)
[2018-11-20] MEDS: BETAPACE PO SCH ×2 (09:40→20:12)
[2018-11-20] MEDS: ASPIRIN PO SCH (09:40)
[2018-11-20] MEDS: COZAAR PO SCH (09:40)
[2018-11-20] MEDS: NON-FORMULARY BULK MED PO SCH (09:41)
[2018-11-20] MEDS: MAXIPIME 2 GM in NS 100 ML IV SCH ×2 (09:49→17:42)
[2018-11-20] MEDS: CUBICIN 500 MG in NS 100 ML IV SCH (12:33)
[2018-11-20] MEDS: PROTONIX IV SCH (12:34)
[2018-11-20] MEDS: MYCOSTATIN SUSP PO SCH ×4 (12:34→20:13)
--- NOTE | 2018-11-20 12:56 | PROGRESS NOTE ---
DATE: 11/20/2018 SUBJECTIVE: Patient is resting in bed. She was awake but was nonverbal. I spoke to the patient's nurse at bedside. The patient has decreased p.o. intake. The family decided not to proceed with the PEG tube placement. OBJECTIVE: Vital signs: Temperature 99.5, pulse rate 105, respiratory rate 18 , blood pressure 105/54, saturating 99% on Ventimask 50% FiO2. Body weight of 162 pounds, BMI 29.6 kg/m2. General: Moderately built, moderately nourished, lying in bed, in no acute distress. HEENT: Pale conjunctivae. No icterus. Face mask in place. Neck: Supple. Abdomen: Obese, protuberant. No guarding or rebound. Extremities: No cyanosis, clubbing. Neurologic: She will not answer any questions. Was able to open her eyes on tactile stimuli. LABS: Hemoglobin and hematocrit are 9.9 and 30.6, white count 9.84, platelet count of 260,000. Sodium 134, potassium 3.8, chloride 99, bicarb 24, anion gap 11, BUN of 25, creatinine 0.5, glucose of 142, calcium is 8.9. Urine culture showed Staph hominis on 2017. IMPRESSION AND PLAN: 1. Encephalopathy, advanced dementia, and decreased p.o. intake. At this moment the family has decided to pursue palliative care. 2. Urinary tract infection. She is on antibiotics with cefepime and daptomycin. 3. Malnutrition. She continues on Clinimix for now. 4. Constipation. Continues on Dulcolax as needed. 5. Atrial fibrillation. She is on sotalol. 6. Gastrointestinal prophylaxis with proton pump inhibitors. The above plan was discussed with the patient's nurse at bedside and all questions answered. cc: MD Kurt Sung MD [facility] HOSPITALLeonardo
[2018-11-20] MEDS: TYLENOL NG PRN (14:46)
--- NOTE | 2018-11-20 15:16 | PROGRESS NOTE ---
DATE: 11/20/2018 SUBJECTIVE: Patient resting comfortably in bed. She does have her family present in the room. OBJECTIVE: Vital signs: Temperature 99.1 degrees, pulse 59, respirations 18, blood pressure is 99/51, oxygen saturation is 99%. HEENT: Atraumatic, normocephalic. Cardiovascular: S1, S2. Respiratory system: Has evidence of good air entry bilaterally. Abdomen: Soft , nontender. No masses. Extremities: No evidence of edema. Central nervous system: No obvious focal deficits noted. LABORATORY DATA: WBC is 89.84 hematocrit is 30.6 with a platelet count of 268, 000. Sodium is 134, potassium is 3.8, chloride is 99, bicarb 24, BUN is 25, creatinine 0.5. ASSESSMENT: 1. Encephalopathy. 2. Urinary tract infection. 3. Atrial fibrillation. 4. Hypertrophic cardiomyopathy. 5. Hypertension. 6. Coronary artery disease. 7. Dysphagia. PLAN: The patient's family seem towards hospice/palliative care. If that is the case, the family will have to decide if they would like to stop all treatment/labs and just maintain patient on comfort care only. Alternatively, they may have to decide which treatment she will need continued. cc: Kurt Young MD MTDD
--- NOTE | 2018-11-20 15:57 | PROGRESS NOTE ---
DATE: 11/20/2018 CARDIOLOGY FOLLOWUP NOTE: SUBJECTIVE: Patient more awake today. She converted back to sinus rhythm yesterday. She continues on supplemental oxygen per mask. OBJECTIVE: Vital Signs: Blood pressure 100/51, heart rate 58 to 60 and regular, with ECG monitor showing sinus bradycardia, oxygen saturation 99%. Neck: Jugular venous distention cannot be appreciated. Chest: Clear to auscultation anteriorly bilaterally. Cardiac: Reveals a regular rate and rhythm without appreciable murmur or gallop. There is no evidence of peripheral edema. LABORATORY DATA: Includes a white blood cell count of 9.84, hematocrit 30.6, hemoglobin 9.9, platelet count 260,000. IMPRESSION: 1. Encephalopathy in the setting of significant dementia aggravated by medical issues. She seems to be improved presently. 2. Recent atrial fibrillation. She has converted back to sinus rhythm on sotalol. 3. Hypertrophic cardiomyopathy. 4. Suspect diastolic heart failure tendency aggravated by atrial fibrillation. This appears to have improved with diuresis. 5. Depression. RECOMMENDATIONS: 1. Continue sotalol 80 mg twice daily to try and maintain sinus rhythm. 2. Continue Lovenox 1 mg/kg subcutaneously q.12. 3. Depending on disposition, will decide upon long-term anticoagulation. cc: Andrew Hyman MD
[2018-11-20] MEDS: THIAMINE 100 MG in NS 50 ML IV SCH (20:11)
[2018-11-20] MEDS: LIPOSYN 20% 250 ML IV SCH (20:12)
[2018-11-21] MEDS: TRANSDERM-SCOP TD SCH
[2018-11-21] MEDS: TYLENOL NG PRN (00:48)
[2018-11-21] MEDS: D5 NS 1,000 ML IV SCH (05:08)
[2018-11-21] MEDS: MAXIPIME 2 GM in NS 100 ML IV SCH (05:42)
--- NOTE | 2018-11-21 06:48 | INFECTIOUS DISEASE PROGRESS NO ---
DATE: 11/21/2018 PRESENT ILLNESS: The patient has a Staphylococcus hominis urinary tract infection. Also yesterday, it appeared that the patient may have a left lower lobe and lingular pneumonia versus atelectasis. MEDICATIONS: This is the eighth day of treatment with daptomycin and the first day of treatment with cefepime. PHYSICAL EXAMINATION: Vital Signs: Temperature is 99.5 degrees, pulse 65, respirations 18, blood pressure 129/56. General: This is a lethargic, obese, elderly female. She is in no acute distress. Head, Eyes, Ears, Nose, and Throat: The patient has an NG tube down. I did not see any drainage from her nose or ears. Her mouth was not open and she did not open it to request. Neck: No meningismus. Lungs: Clear to auscultation. Cardiovascular: Heart rate is regular. Abdomen: Soft and nontender. Neurologic: The patient has a decreased level of consciousness. She did not respond to verbal stimuli. There was no tremor. Integument: No rash noted. LAB AND X-RAY: There is no new radiographic study. The only new lab that I have seen is the patient's CK which is in the normal range at 121. ASSESSMENT AND PLAN: The patient has a urinary tract infection and pneumonia. To treat the current illnesses, I would be giving the patient daptomycin for 5 more days and cefepime probably for 5 more days also. I think, however, if the patient is going to go home under the care of hospice that it would be reasonable to discontinue the antibiotics and concentrate on comfort measures. COMORBIDITIES: The patient is elderly, she has dementia, and ischemia of the brain. cc: Moo Rush MD
--- NOTE | 2018-11-21 08:58 | PROGRESS NOTE ---
DATE: 11/21/2018 SUBJECTIVE: Patient more awake, but does not interact verbally. She does not appear to be in any distress. OBJECTIVE: Vital Signs: Blood pressure 129/56, heart rate 65 and regular, oxygen saturation 95 to 96% on room air. Neck: Jugular venous distention cannot be appreciated. Chest: Clear to auscultation bilaterally. Cardiac: Reveals a regular rate and rhythm without appreciable murmur or gallop. There is no evidence of peripheral edema. IMPRESSION: 1. Encephalopathy in setting of significant dementia aggravated by medical issues. 2. Recent atrial fibrillation. She has converted back to sinus rhythm on sotalol. 3. Hypertrophic cardiomyopathy. 4. Tendency for diastolic heart failure aggravated by atrial fibrillation. This appears to have improved with diuresis. 5. Depression. RECOMMENDATIONS: Continue current cardiovascular regimen as tolerated and permitted. It is noted that she has been placed on hospice. Given such, it is reasonable to transition her care from a cardiovascular standpoint to comfort measures. It would not appear that sotalol and anticoagulation are paramount in this regard. cc: Andrew Hyman MD
[2018-11-21] MEDS: ASPIRIN PO SCH (09:05)
[2018-11-21] MEDS: COZAAR PO SCH (09:05)
[2018-11-21] MEDS: MYCOSTATIN SUSP PO SCH (09:05)
[2018-11-21] MEDS: BETAPACE PO SCH (09:05)
[2018-11-21] MEDS: LOVENOX SUBQ SCH (09:05)
[2018-11-21] MEDS: NON-FORMULARY BULK MED PO SCH (09:06)
[2018-11-21 09:09] LABS: BASO# 0.04 X1000 (0.0-0.2); BASO% 0.5 % (0.0-0.8); EOS# 0.33 X1000 (0.0-0.7); EOS% 3.8 % (0.0-10.0); HEMATOCRIT 28.9 % (37.0-47.0); HEMOGLOBIN 9.4 g/dL (12.0-16.0); IMM GRAN# 0.03 X1000 (0.0-0.04); IMM GRAN% 0.3 % (0.0-0.5); LYMPH# 1.12 X1000 (1.2-3.4); LYMPH% 12.9 % (20.5-51.1); MCH 32.3 PG (27-31); MCHC 32.5 g/dL (33-37); MCV 99.3 FL (81-99); MONO# 0.53 X1000 (0.11-0.59); MONO% 6.1 % (1.7-9.3); NEUT# 6.61 X1000 (1.4-6.5); NEUT% 76.4 % (42.2-75.2); PLT 246 X1000 (130-400); RBC 2.91 XMIL (4.2-5.4); RDW 11.7 % (11.5-14.5); WBC 8.66 X1000 (4.8-10.8)
--- NOTE | 2018-11-21 09:12 | Diag Imaging Result Doc PS360 ---
EXAM: CHEST-PORTABLE 11/21/2018 HISTORY: dyspnea TECHNIQUE: AP portable at 0851 COMMENT: There is a PICC line on the right with its tip in the superior vena cava. There is an NG tube with its tip below the diaphragm. The inspiration is less optimal than on 11/18/2018. There has been clearing of the left costophrenic angle region however. IMPRESSION: Improved pneumonia versus atelectasis in the lingula and left lower lobe. Electronically signed by Dario Hook 11/21/2018 9:09 AM
[2018-11-21] MEDS: CLINIMIX E 4.25%-5% SOLUTION 1,000 ML IV SCH (09:29)
[2018-11-21 09:55] LABS: AGAP 11; BUN 25 mg/dL (8-22); CALCIUM 9.3 mg/dL (8.8-10.2); CHLORIDE 103 mmol/L (98-107); COSMO 278; CREATININE 0.6 mg/dL (0.5-0.9); ESTIMATED GFR > 60; GLUCOSE 127 mg/dL (70-104); POTASSIUM 4.1 mmol/L (3.5-5.1); SODIUM 136 mmol/L (136-145); TCO2 22 mmol/L (25-35)
[2018-11-21] MEDS ORDERED: ATROPINE 1 % OPHTH SOLN OPH PRN (11:42)
[2018-11-21] MEDS ORDERED: ATIVAN IV PRN (11:43)
--- NOTE | 2018-11-21 12:03 | PROGRESS NOTE ---
DATE: 11/17/2018 SUBJECTIVE: The patient is resting, had an NG tube in place. OBJECTIVE: Vital Signs: Temperature 97.9 degrees, pulse 81, respiration 18, blood pressure 138/67, oxygen 99%. HEENT: Conjunctival pallor. Neck: Supple. Trachea midline. Heart: Normal. Lungs: Normal. Abdomen: Soft, nontender. Extremities: No edema. MANAGER VOICE: No focal deficit, but she is sleepy. IMPRESSION: 1. Encephalopathy. Possibly related to medications and sepsis. 2. Urinary tract infection. 3. Atrial fibrillation. 4. Cardiomyopathy. 5. Hypertension. 6. Dysphagia. The patient is having NG tube feeding. She did not tolerate swallow. Talked to the family, would wait about the PEG tube. 7. Deep vein thrombosis prophylaxis. cc: Maureen Kennedy MD
--- NOTE | 2018-11-21 12:04 | PROGRESS NOTE ---
DATE: 11/18/2018 SUBJECTIVE: Somewhat sedated. Family in the room. I think the son said he does not want a PEG tube and would wait until she improves her PHYSICAL EXAMINATION: Vital Signs: Temperature 98 degrees, pulse 84, respiration rate 20, blood pressure 113/59. HEENT: Conjunctival pallor. Neck: Supple. Trachea midline. Heart: Normal. Lungs: Normal. Abdomen: Soft, nontender. IMPRESSION AND PLAN: 1. Encephalopathy, metabolic. 2. Urinary tract infection. 3. Atrial fibrillation. 4. Hypertension. 5. Hyperlipidemia. 6. Gastrointestinal prophylaxis. Family decided not to proceed with PEG tube. We will wait if she improves her mental status. -9 cc: Maureen Kennedy MD MTDD
--- NOTE | 2018-11-21 18:30 | PROGRESS NOTE ---
DATE: 11/21/2018 SUBJECTIVE: The patient is resting comfortably. No acute events noted overnight. OBJECTIVE: Vital signs: Temperature 98.9 degrees, blood pressure 136/76, heart rate 72, respiratory rate 19, O2 saturation 92% on room air. General: This is a chronically ill- appearing elderly female lying in bed in no acute distress . Heart: S1, S2 normal. Regular rate and rhythm. Lungs: Coarse breath sounds with crackles bilaterally. Abdomen: Positive bowel sounds, soft, nontender, nondistended. Extremities: 1+ edema bilaterally. Neuro: The patient is awake. ASSESSMENT AND PLAN: 1. Metabolic encephalopathy. 2. Pneumonia. 3. Urinary tract infection. 4. Anemia. The patient will be discharged home with hospice tomorrow under the care of [facility]. cc: Sherron Dailey MD
[2018-11-22] MEDS: MORPHINE IV PRN ×2 (04:35→11:34)
--- NOTE | 2018-11-22 10:54 | PROGRESS NOTE ---
DATE: 11/19/2018 SUBJECTIVE: The patient is sleepy, family at bedside and not communicating. OBJECTIVE: Vital signs: T-max 98, pulse 78, respirations 19, blood pressure 105/40, O2 sat 100% on Ventimask. General: In no acute distress, quiet, sleepy. HEENT: Conjunctival pallor. Neck: Supple. Heart and lungs: Normal. Abdomen: Soft, nontender. Extremities: No cyanosis or clubbing. IMPRESSION AND PLAN: 1. Metabolic encephalopathy, drugs versus urinary tract infection. 2. Atrial fibrillation. 3. Heart failure. 4. Hypertension. 5. Hyperlipidemia. 6. Nutrition issues. They do not want PEG tubes used currently. We used NG tube. 7. DVT prophylaxis. cc: Maureen Kennedy MD
--- NOTE | 2018-11-22 11:10 | PROGRESS NOTE ---
DATE: 11/21/2018 SUBJECTIVE: Resting comfortably, no issues. OBJECTIVE: Vital signs: Temp 98, blood pressure 136/76, heart rate 72, respiratory rate 19, O2 sat 92%. HEENT: Conjunctival pallor. Neck: Supple. Trachea midline. Heart and lungs: Normal. Abdomen: Soft, nontender. Extremities: 1+ edema. IMPRESSION AND PLAN: 1. Metabolic encephalopathy. 2. Pneumonia. 3. Urinary tract infection. 4. Anemia. 5. Nutritional support. The patient is going to hospice. They do not want PEG tube. She will continue to be fed by NG tube. -0 cc: Maureen Kennedy MD
[2018-11-22 13:38] VITALS: BP 141/111
--- NOTE | 2018-11-22 16:05 | PROGRESS NOTE ---
DATE: 11/22/2018 SUBJECTIVE: Patient resting in bed. The patient is nonverbal. She was able to open her eyes to verbal commands. The patient is going home today, on hospice. OBJECTIVE: Vital signs: Temperature 100.5 degrees, pulse rate 79, respiratory rate 17, blood pressure 141/111, saturating 97% on nasal cannula. General Appearance: Moderately built, moderately nourished, lying in bed in no acute distress. HEENT: Pale conjunctivae. No icterus. Neck: Supple. Abdomen: Protuberant. No guarding. No rebound. Extremities: No cyanosis or clubbing. Neurological: She was able to open her eyes to commands, but she did not verbalize. LABORATORY DATA: Hemoglobin and hematocrit 9.4 and 28.9, white count 8.6, platelet count 246,000. Sodium 136, potassium 4.1, chloride 103, bicarb 22, anion gap 11, BUN 25, creatinine 0.6, glucose 127, calcium 9.7. IMPRESSION AND PLAN: 1. Metabolic encephalopathy. 2. Pneumonia. 3. Urinary tract infection. 4. Anemia. 5. Malnutrition. The patient is going home on hospice. No plans for EGD or percutaneous endoscopic gastrostomy tube placement. 6. Gastrointestinal prophylaxis with proton pump inhibitors. 7. Dementia, aware. 8. Decreased p.o. intake and malnutrition, as above. 9. Constipation. She can use Dulcolax as needed. The above plans discussed with the patient's nurse and all questions answered. Please call if any further questions. cc: MD Sherron Sung MD
--- NOTE | 2018-12-03 05:01 | DISCHARGE SUMMARY ---
ADMISSION DATE: 11/07/2018 DISCHARGE DATE: 11/22/2018 FINAL DISCHARGE DIAGNOSES: 1. Metabolic encephalopathy. 2. Urinary tract infection secondary to Staphylococcus hominis. 3. Pneumonia. 4. Anemia of chronic disease. 5. Cardiomyopathy. 6. Atrial fibrillation. 7. Dysphagia. 8. Coronary artery disease. HOSPITAL COURSE: Ms. Nascimento is an 88-year-old female with a history of multiple medical problems who was initially admitted to the hospital with altered mental status. Upon further assessment in the ER, it was thought that the patient had suffered a stroke. The patient was admitted to the hospitalist service and neurology was consulted. The patient underwent an MRI of the brain which revealed atrophy and chronic microvascular disease but no evidence of an acute stroke. 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 A chest x- ray was also done on admission that revealed indeterminate infiltrates and atelectasis. As a result, cultures were obtained and the patient was started on broad-spectrum antibiotics. Over the course of the hospital stay, it was discovered that the patient was suffering from dysphagia so GI was consulted. Eventually, an NG tube was placed and the patient was started on tube feeds. Infectious disease was also consulted for assistance with treatment of the pneumonia. Despite therapy, the patient's status continued to worsen. This was discussed with the patient's family, who opted to make the patient comfort measures and to have the patient discharged home with hospice. Palliative care was consulted to assist with discharge planning, as well as bilingual social worker. The patient was discharged home with hospice on 11/22/2018 under the care of [facility]. cc: Sherron Dailey MD
== END 2018-11-22 13:40 | disposition hospice, home (50) | DRG 689 ==
LOC: ED 20:22 → SUATTDRO 11-07 00:21 → 3N 11-07 00:21 → 3S 11-10 16:21
PROVIDERS: ATTEND Internal Medicine
CPT/HCPCS: 36569; 51702; 70450; 70544; 70553; 71010; 71045; 74000; 74018; 80048; 80053; 80061; 81001; 82550; 82805; 82948; 83605; 83721; 83735; 83880; 84100; 84134; 84145; 84443; 84484; 85025; 85610; 87040; 87077; 87088; 87186; 92610; 93005; 93010; 93306; 94761; 94762; 95816; 96361; 96374; 97161; 99285; A9270; A9579; C9113; J0692; J0878; J1650; J1940; J2270; J2405; J3370; J3411; J3480; J7030; J7040; J7042; J7050; S0164; XXXXX